=== PATIENT | male | born 1965 | race African-American/Black ===

== ENCOUNTER 2019-07-19 13:39 | Inpatient (IN) | payer BC, OTHER ==
[2019-07-19] MEDS ORDERED: SODIUM CHLORIDE 0.9% 1,000 ML IV STA (14:05)
[2019-07-19 14:14] LABS: Glucose,Whole Blood 562 mg/dL (75-99)
[2019-07-19 14:14] LABS: Glucose,Whole Blood 591 mg/dL (75-99)
--- NOTE | 2019-07-19 14:16 | ED ---
General Adult HPI - General Chief complaint: Recheck/Abnormal Lab/Rx Stated complaint: blurred vison Time Seen by Provider: 07/19/19 14:05 Source: patient, RN notes reviewed Mode of arrival: ambulatory Limitations: no limitations - History of Present Illness Initial comments: Patient is a pleasant 53-year-old male presenting to the emergency department with several symptoms that concern him about possible diabetes. Patient researched some symptoms online and now is concern regarding this. Patient states symptoms have been present for a few days. Patient does have some mild blurry vision. Patient feels like his mouth is dry and is thirsty. Patient has been urinating more than normal. Patient feels fatigued and slightly lightheaded. No history of similar symptoms previously. No known family history of diabetes. No weakness. No confusion. - Related Data Home Medications Medication Instructions Recorded Confirmed Melatonin 5 mg PO HS 12/05/17 12/05/17 Multivitamins, Thera [Multivitamin 1 tab PO DAILY 12/05/17 12/05/17 (formulary)] Allergies Allergy/AdvReac Type Severity Reaction Status Date / Time No Known Allergies Allergy Verified 07/19/19 13:52 Review of Systems ROS Statement: Those systems with pertinent positive or pertinent negative responses have been documented in the HPI. ROS Other: All systems not noted in ROS Statement are negative. Constitutional: Denies: fever Eyes: Reports: as per HPI. Denies: eye pain ENT: Denies: ear pain Respiratory: Denies: cough, dyspnea Cardiovascular: Denies: chest pain Endocrine: Reports: fatigue Gastrointestinal: Denies: abdominal pain, nausea, vomiting Genitourinary: Reports: frequency. Denies: dysuria Musculoskeletal: Denies: back pain Skin: Denies: rash Neurological: Reports: as per HPI Past Medical History Past Medical History: Hypertension History of Any Multi-Drug Resistant Organisms: Unobtainable Past Surgical History: No Surgical Hx Reported Past Psychological History: No Psychological Hx Reported Smoking Status: Never smoker Past Alcohol Use History: None Reported Past Drug Use History: None Reported General Exam Limitations: no limitations General appearance: alert, in no apparent distress Head exam: Present: normocephalic Eye exam: Present: normal appearance ENT exam: Present: normal oropharynx Neck exam: Present: normal inspection Respiratory exam: Present: normal lung sounds bilaterally Cardiovascular Exam: Present: regular rate, normal rhythm GI/Abdominal exam: Present: soft. Absent: tenderness Extremities exam: Present: normal inspection Neurological exam: Present: alert, CN II-XII intact. Absent: motor sensory deficit Expanded Motor strength exam: RUE: 5, LUE: 5, RLE: 5, LLE: 5 Eye Response: (4) open spontaneously Motor Response: (6) obeys commands Verbal Response: (5) oriented Psychiatric exam: Present: normal affect, normal mood Skin exam: Present: normal color Course Vital Signs 07/19/19 07/19/19 13:47 15:15 Temperature 98.6 F Pulse Rate 125 H 103 H Respiratory 18 18 Rate Blood Pressure 141/98 134/96 O2 Sat by Pulse 100 98 Oximetry EKG Findings - EKG Comments: EKG Findings:: Sinus tachycardia 113. WA 114. QRS 90. QT 306. QTc 419. No rmal axis. Normal QRS. No acute ST change. Medical Decision Making - Medical Decision Making Patient reevaluated and resting comfortably in bed. Patient updated on results and plan. [facility] has been paged for admission for hospital call. Fluids given. IV insulin and will be provided. - Lab Data Result diagrams: 07/19/19 14:05 07/19/19 14:05 Lab Results 07/19/19 07/19/19 07/19/19 Range/Units 14:00 14:02 14:05 WBC 15.6 H (3.8-10.6) k/uL RBC 5.73 (4.30-5.90) m/uL Hgb 17.0 (13.0-17.5) gm/dL Hct 51.4 (39.0-53.0) % MCV 89.7 (80.0-100.0) fL MCH 29.7 (25.0-35.0) pg MCHC 33.1 (31.0-37.0) g/dL RDW 12.5 (11.5-15.5) % Plt Count 232 (150-450) k/uL Neutrophils % 82 % Lymphocytes % 12 % Monocytes % 4 % Eosinophils % 1 % Basophils % 0 % Neutrophils # 12.8 H (1.3-7.7) k/uL Lymphocytes # 1.9 (1.0-4.8) k/uL Monocytes # 0.6 (0-1.0) k/uL Eosinophils # 0.1 (0-0.7) k/uL Basophils # 0.0 (0-0.2) k/uL Sodium (137-145) mmol/L Potassium (3.5-5.1) mmol/L Chloride (98-107) mmol/L Carbon Dioxide (22-30) mmol/L Anion Gap mmol/L BUN (9-20) mg/dL Creatinine (0.66-1.25) mg/dL Est GFR (CKD-EPI)AfAm (>60 ml/min/1.73 sqM) Est GFR (CKD-EPI)NonAf (>60 ml/min/1.73 sqM) Glucose (74-99) mg/dL POC Glucose (mg/dL) 562 H 591 H (75-99) mg/dL POC Glu [employer] Carolina Whitten Joanna Plasma Lactic Acid Gerry (0.7-2.0) mmol/L Calcium (8.4-10.2) mg/dL Magnesium (1.6-2.3) mg/dL Total Bilirubin (0.2-1.3) mg/dL AST (17-59) U/L ALT (4-49) U/L Alkaline Phosphatase (38-126) U/L Total Protein (6.3-8.2) g/dL Albumin (3.5-5.0) g/dL Acetone, Qual (Negative) 07/19/19 07/19/19 07/19/19 Range/Units 14:05 14:05 15:16 WBC (3.8-10.6) k/uL RBC (4.30-5.90) m/uL Hgb (13.0-17.5) gm/dL Hct (39.0-53.0) % MCV (80.0-100.0) fL MCH (25.0-35.0) pg MCHC (31.0-37.0) g/dL RDW (11.5-15.5) % Plt Count (150-450) k/uL Neutrophils % % Lymphocytes % % Monocytes % % Eosinophils % % Basophils % % Neutrophils # (1.3-7.7) k/uL Lymphocytes # (1.0-4.8) k/uL Monocytes # (0-1.0) k/uL Eosinophils # (0-0.7) k/uL Basophils # (0-0.2) k/uL Sodium 129 L (137-145) mmol/L Potassium 5.4 H (3.5-5.1) mmol/L Chloride 93 L (98-107) mmol/L Carbon Dioxide 11 L (22-30) mmol/L Anion Gap 25 mmol/L BUN 31 H (9-20) mg/dL Creatinine 1.55 H (0.66-1.25) mg/dL Est GFR (CKD-EPI)AfAm 58 (>60 ml/min/1.73 sqM) Est GFR (CKD-EPI)NonAf 50 (>60 ml/min/1.73 sqM) Glucose 611 H* (74-99) mg/dL POC Glucose (mg/dL) 504 H (75-99) mg/dL POC Glu [employer] Carolina Whitten Plasma Lactic Acid Gerry 3.6 H* (0.7-2.0) mmol/L Calcium 10.1 (8.4-10.2) mg/dL Magnesium 2.1 (1.6-2.3) mg/dL Total Bilirubin 0.9 (0.2-1.3) mg/dL AST 25 (17-59) U/L ALT 32 (4-49) U/L Alkaline Phosphatase 133 H (38-126) U/L Total Protein 8.8 H (6.3-8.2) g/dL Albumin 4.8 (3.5-5.0) g/dL Acetone, Qual Positive (Negative) - Radiology Data Radiology results: image reviewed (Chest x-ray shows no acute process) Critical Care Time Critical Care Time: Yes Total Critical Care Time: 32 Disposition Clinical Impression: Diabetic ketoacidosis Disposition: ADMITTED IP TO THIS [facility] Condition: Serious Is patient prescribed a controlled substance at d/c from ED?: No Referrals: None,Stated [Primary Care Provider] - 1-2 days Decision Time: 15:35
--- NOTE | 2019-07-19 14:47 | XR ---
EXAMINATION TYPE: XR chest 2V DATE OF EXAM: 07/19/2019 COMPARISON: NONE HISTORY: Shortness of breath TECHNIQUE: Frontal and lateral views of the chest are obtained. FINDINGS: Scattered senescent parenchymal changes noted. Hyperinflation compatible with COPD. No evidence for infiltrate. No evidence for atelectasis. Heart size is stable. Mediastinal structures are stable and grossly unremarkable. No evidence for hilar prominence. Degenerative changes dorsal spine. IMPRESSION: 1. No evidence for acute pulmonary disease.
[2019-07-19 14:49] LABS: Basophils % (A) 0 %; Eosinophils # (A) 0.1 k/uL (0-0.7); Eosinophils % (A) 1 %; HCT 51.4 % (39.0-53.0); Lymphocytes # (A) 1.9 k/uL (1.0-4.8); Lymphocytes % (A) 12 %; MCH 29.7 pg (25.0-35.0); MCHC 33.1 g/dL (31.0-37.0); MCV 89.7 fL (80.0-100.0); Mean Platelet Volume 11.5; Monocytes # (A) 0.6 k/uL (0-1.0); Monocytes % (A) 4 %; Neutrophils # (A) 12.8 k/uL (1.3-7.7); Neutrophils % (A) 82 %; Platelet Count 232 k/uL (150-450); RBC 5.73 m/uL (4.30-5.90); RDW 12.5 % (11.5-15.5); WBC 15.6 k/uL (3.8-10.6)
[2019-07-19 14:51] LABS: ALT 32 U/L (4-49); AST 25 U/L (17-59); African American GFR (CKD) 58 (>60 ml/min/1.73 sqM); Albumin 4.8 g/dL (3.5-5.0); Alkaline Phosphatase 133 U/L (38-126); Anion Gap 25 mmol/L; Blood Urea Nitrogen 31 mg/dL (9-20); Calcium 10.1 mg/dL (8.4-10.2); Carbon Dioxide 11 mmol/L (22-30); Chloride 93 mmol/L (98-107); Magnesium 2.1 mg/dL (1.6-2.3); Non-African American GFR(CKD) 50 (>60 ml/min/1.73 sqM); Potassium 5.4 mmol/L (3.5-5.1); Sodium 129 mmol/L (137-145); Total Bilirubin 0.9 mg/dL (0.2-1.3); Total Protein 8.8 g/dL (6.3-8.2)
[2019-07-19 15:17] LABS: Glucose 611 mg/dL (74-99)
[2019-07-19 15:17] LABS: Glucose,Whole Blood 504 mg/dL (75-99)
[2019-07-19 15:35] LABS: Appearance,Urine Clear (Clear); Bilirubin,Urine Negative (Negative); Blood,Urine Small (Negative); Color,Urine Colorless; Glucose,Urine (UA) 4+ (Negative); Hyaline Casts,Urine 1 /lpf (0-2); Leukocyte Esterase,Urine Negative (Negative); Mucus,Urine Rare /hpf; Nitrite,Urine Negative (Negative); Protein,Urine Negative (Negative); RBC,Urine 1 /hpf (0-5); Urobilinogen,Urine <2.0 mg/dL (<2.0)
[2019-07-19] MEDS ORDERED: SODIUM CHLORIDE 0.9% 1,000 ML IV ONE (15:35)
[2019-07-19] MEDS ORDERED: INSULIN REGULAR BOLUS (FROM DRIP BAG) IV ONE (15:35)
[2019-07-19] MEDS ORDERED: SODIUM CHLORIDE 0.9% 1,000 ML IV SCH (15:45)
[2019-07-19 15:46] LABS: Ketones,Urine 2+ (Negative)
[2019-07-19] MEDS: INSULIN REGULAR 100 UNIT in SODIUM CHLORIDE 0.9% 100 ML IV SCH (16:36)
[2019-07-19 17:01] LABS: Glucose,Whole Blood 372 mg/dL (75-99)
[2019-07-19 17:28] LABS: Glucose,Whole Blood 362 mg/dL (75-99)
--- NOTE | 2019-07-19 18:28 | P.HPIM ---
History of Present Illness H&P Date: 07/19/19 Chief Complaint: polyuria Patient is a 53-year-old -[place] male past medical history of high blood pressure no longer on medications who presented to the emergency dep artment secondary to polyuria, polydipsia, dry mouth, and blurred vision. In the ER he underwent an extensive evaluation was ultimately found to have DKA. On initial lab work he had a potassium of 5.4, sodium 129, chloride 93, carbon dioxide 11, anion gap 25, BUN 31, creatinine 1.55, glucose 611, acetone positive, and lactic acid of 3.6. He was started on IV fluids and insulin and admitted for further monitoring. Patient seen and examined at bedside. He states he initially started to feel i ll approximately 3 weeks ago. He has noticed about a 10 pound weight loss. He has had frequent urination, frequent thirst, dry mouth, blurry vision. He denies any nausea, vomiting, diarrhea, constipation, chest pain, shortness breath, or cough. He has felt overall very fatigued. He has no family history of diabetes. He currently does not follow with the primary care physician. Review of Systems Pertinent positives and negatives as discussed in HPI, a complete review of systems was performed and all other systems are negative. 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 No significant issues noted on an osteopathic structural exam other than those noted in the History and Physical/Consult. Vitals: Vital Signs Temp Pulse Resp BP Pulse Ox 07/19/19 17:31 115 H 17 127/79 98 07/19/19 17:08 113 H 18 119/78 98 07/19/19 15:15 103 H 18 134/96 98 07/19/19 13:47 98.6 F 125 H 18 141/98 100 Intake and Output 07/19/19 07/19/19 07/19/19 06:59 14:59 22:59 Other: Weight 99.79 kg General: Ill-appearing, no distress, appears at stated age, normal weight Derm: no unusual rashes/lesions no unusual ecchymoses, warm, dry Head: atraumatic, normocephalic, symmetric Eyes: EOMI, no lid lag, anicteric sclera, pupils equal round reactive to light ENT: Nose and ears atraumatic, no thrush, no pharyngeal erythema Neck: No thyromegaly, no cervical lymphadenopathy, trachea midline, supple Mouth: no lip lesion, mucus membranes dry Cardiovascular: S1S2 reg, no murmur, positive posterior tibial pulse bilateral, no edema, capillary refill less than 2 seconds Lungs: CTA bilateral, no rhonchi, no rales , no accessory muscle use Abdominal: soft, nontender to palpation, no guarding, no appreciable organomegaly, normal bowel sounds Ext: no gross muscle atrophy, muscle strength 5 out of 5 in all 4 extremities grossly, no contractures, Neuro: CN II-XI grossly intact, light touch intact all 4 extremities, finger to nose within normal limits, Psych: Alert, oriented, appropriate affect Results CBC & Chem 7: 07/19/19 14:05 07/19/19 14:05 Labs: Abnormal Lab Results - Last 24 Hours (Table) 07/19/19 07/19/19 07/19/19 Range/Units 14:00 14:02 14:05 WBC 15.6 H (3.8-10.6) k/uL Neutrophils # 12.8 H (1.3-7.7) k/uL Sodium (137-145) mmol/L Potassium (3.5-5.1) mmol/L Chloride (98-107) mmol/L Carbon Dioxide (22-30) mmol/L BUN (9-20) mg/dL Creatinine (0.66-1.25) mg/dL Glucose (74-99) mg/dL POC Glucose (mg/dL) 562 H 591 H (75-99) mg/dL Plasma Lactic Acid Gerry (0.7-2.0) mmol/L Alkaline Phosphatase (38-126) U/L Total Protein (6.3-8.2) g/dL Urine Glucose (UA) (Negative) Urine Ketones (Negative) Urine Blood (Negative) Urine Mucus (None) /hpf 07/19/19 07/19/19 07/19/19 Range/Units 14:05 14:05 15:10 WBC (3.8-10.6) k/uL Neutrophils # (1.3-7.7) k/uL Sodium 129 L (137-145) mmol/L Potassium 5.4 H (3.5-5.1) mmol/L Chloride 93 L (98-107) mmol/L Carbon Dioxide 11 L (22-30) mmol/L BUN 31 H (9-20) mg/dL Creatinine 1.55 H (0.66-1.25) mg/dL Glucose 611 H* (74-99) mg/dL POC Glucose (mg/dL) (75-99) mg/dL Plasma Lactic Acid Gerry 3.6 H* (0.7-2.0) mmol/L Alkaline Phosphatase 133 H (38-126) U/L Total Protein 8.8 H (6.3-8.2) g/dL Urine Glucose (UA) 4+ H (Negative) Urine Ketones 2+ H (Negative) Urine Blood Small H (Negative) Urine Mucus Rare H (None) /hpf 07/19/19 07/19/19 07/19/19 Range/Units 15:16 16:59 17:27 WBC (3.8-10.6) k/uL Neutrophils # (1.3-7.7) k/uL Sodium (137-145) mmol/L Potassium (3.5-5.1) mmol/L Chloride (98-107) mmol/L Carbon Dioxide (22-30) mmol/L BUN (9-20) mg/dL Creatinine (0.66-1.25) mg/dL Glucose (74-99) mg/dL POC Glucose (mg/dL) 504 H 372 H 362 H (75-99) mg/dL Plasma Lactic Acid Gerry (0.7-2.0) mmol/L Alkaline Phosphatase (38-126) U/L Total Protein (6.3-8.2) g/dL Urine Glucose (UA) (Negative) Urine Ketones (Negative) Urine Blood (Negative) Urine Mucus (None) /hpf Chest x-ray: report reviewed Thrombosis Risk Factor Assmnt - DVT/VTE Prophylaxis DVT/VTE Prophylaxis: Low risk, early ambulation encouraged Assessment and Plan Assessment: Newly discovered diabetes mellitus type 2 with diabetic ketoacidosis -DKA protocol with IV fluids, insulin, every hour Accu-Cheks, and serial lab work -Check hemoglobin A1c -Social stressors that patient has no insurance and likely will need 70/30 from [employer]. Pseudohyponatremia was corrected sodium level CXLI -Continue with normal saline -Follow sodium levels Hyperkalemia -Secondary acidosis -IV fluids -Follow electrolytes closely CAMI vs CKD -IV fluids -Avoid nephrotoxic agents -Repeat basic but about profile in a.m. History of high blood pressure -No longer medications -Follow blood pressures closely Leukocytosis -Suspect stress-induced -Chest x-ray negative, urinalysis negative -Repeat CBC in a.m. Lactic acidosis -Suspect secondary to above -Repeat lactic acid pending -IV fluids Obesity with BMI 30.7 -Structured outpatient weight loss Social stressor - no insurance. The patient is admitted with an anticipated greater than 2 midnight stay for evaluation of DKA Surrogate decision-maker: Daughter CODE STATUS:Full DVT prophylaxis: SCDs Discussed with: Patient, ED physician Anticipated discharge date: 2-[address]: home A total of 65 minutes was spent on the care of this complex patient more than 50% of the time was spent in counseling and care coordination.
[2019-07-19] MEDS ORDERED: INSULIN REGULAR 100 UNIT in SODIUM CHLORIDE 0.9% 100 ML IV SCH (18:30)
[2019-07-19] MEDS ORDERED: ACETAMINOPHEN TAB 325 MG TAB PO PRN (18:32)
[2019-07-19] MEDS ORDERED: MELATONIN 5 MG TABLET PO PRN (18:32)
[2019-07-19] MEDS ORDERED: ONDANSETRON 4 MG/2 ML VIAL IVP PRN (18:32)
[2019-07-19] MEDS ORDERED: CALCIUM CARBONATE 500 MG CHEWABLE PO PRN (18:32)
[2019-07-19 18:42] LABS: Glucose,Whole Blood 233 mg/dL (75-99)
[2019-07-19] MEDS: D5-0.45% NACL WITH KCL 20MEQ/L 1,000 ML IV SCH (19:09)
[2019-07-19 19:16] LABS: Glucose,Whole Blood 249 mg/dL (75-99)
[2019-07-19 19:25] LABS: Calcium 9.3 mg/dL (8.4-10.2); Magnesium 2.3 mg/dL (1.6-2.3); Phosphorus 3.8 mg/dL (2.5-4.5); Potassium 4.3 mmol/L (3.5-5.1)
[2019-07-19 20:17] LABS: Glucose,Whole Blood 181 mg/dL (75-99)
[2019-07-19 21:19] LABS: Glucose,Whole Blood 244 mg/dL (75-99)
[2019-07-19 22:22] LABS: Glucose,Whole Blood 234 mg/dL (75-99)
[2019-07-19 23:20] LABS: Glucose,Whole Blood 196 mg/dL (75-99)
[2019-07-20 00:03] LABS: African American GFR (CKD) >90 (>60 ml/min/1.73 sqM); Anion Gap 25 mmol/L; Carbon Dioxide 15 mmol/L (22-30); Chloride 107 mmol/L (98-107); Non-African American GFR(CKD) 78 (>60 ml/min/1.73 sqM); Phosphorus 3.9 mg/dL (2.5-4.5); Sodium 147 mmol/L (137-145)
[2019-07-20 00:05] LABS: Blood Urea Nitrogen 29 mg/dL (9-20); Potassium 5.7 mmol/L (3.5-5.1)
[2019-07-20 00:20] LABS: Glucose,Whole Blood 274 mg/dL (75-99)
[2019-07-20] MEDS: INSULIN REGULAR 100 UNIT in SODIUM CHLORIDE 0.9% 100 ML IV SCH ×2 (00:37→13:12)
[2019-07-20 01:32] LABS: Glucose,Whole Blood 202 mg/dL (75-99)
[2019-07-20] MEDS: D5-0.45% NACL WITH KCL 20MEQ/L 1,000 ML IV SCH ×2 (02:11→09:59)
[2019-07-20 02:30] LABS: Glucose,Whole Blood 163 mg/dL (75-99)
[2019-07-20 03:19] LABS: Glucose,Whole Blood 157 mg/dL (75-99)
[2019-07-20 04:18] LABS: Glucose,Whole Blood 179 mg/dL (75-99)
[2019-07-20 05:20] LABS: Glucose,Whole Blood 131 mg/dL (75-99)
[2019-07-20 06:26] LABS: Glucose,Whole Blood 127 mg/dL (75-99)
[2019-07-20 07:11] LABS: Glucose,Whole Blood 118 mg/dL (75-99)
[2019-07-20 07:43] LABS: HGB 15.5 gm/dL (13.0-17.5); MCH 29.5 pg (25.0-35.0); MCV 89.5 fL (80.0-100.0); Mean Platelet Volume 10.1; Platelet Count 180 k/uL (150-450); RBC 5.25 m/uL (4.30-5.90); RDW 12.5 % (11.5-15.5)
[2019-07-20 07:48] LABS: African American GFR (CKD) >90 (>60 ml/min/1.73 sqM); Anion Gap 11 mmol/L; Blood Urea Nitrogen 22 mg/dL (9-20); Calcium 8.7 mg/dL (8.4-10.2); Carbon Dioxide 19 mmol/L (22-30); Chloride 106 mmol/L (98-107); Glucose 106 mg/dL (74-99); Magnesium 2.3 mg/dL (1.6-2.3); Non-African American GFR(CKD) 84 (>60 ml/min/1.73 sqM); Phosphorus 3.4 mg/dL (2.5-4.5); Potassium 4.1 mmol/L (3.5-5.1); Sodium 136 mmol/L (137-145)
[2019-07-20 07:58] LABS: Glucose,Whole Blood 137 mg/dL (75-99)
[2019-07-20 09:36] LABS: Glucose,Whole Blood 241 mg/dL (75-99)
[2019-07-20] MEDS: SODIUM CHLORIDE 0.9% 1,000 ML IV SCH ×3 (09:59→14:25)
[2019-07-20 10:50] LABS: Glucose,Whole Blood 269 mg/dL (75-99)
[2019-07-20 10:55] VITALS: BMI 30.4
[2019-07-20 11:16] LABS: African American GFR (CKD) >90 (>60 ml/min/1.73 sqM); Anion Gap 14 mmol/L; Blood Urea Nitrogen 20 mg/dL (9-20); Calcium 8.5 mg/dL (8.4-10.2); Carbon Dioxide 14 mmol/L (22-30); Chloride 104 mmol/L (98-107); Glucose 297 mg/dL (74-99); Non-African American GFR(CKD) >90 (>60 ml/min/1.73 sqM); Sodium 132 mmol/L (137-145)
[2019-07-20 12:22] LABS: African American GFR (CKD) >90 (>60 ml/min/1.73 sqM); Anion Gap 12 mmol/L; Blood Urea Nitrogen 19 mg/dL (9-20); Calcium 8.7 mg/dL (8.4-10.2); Carbon Dioxide 17 mmol/L (22-30); Chloride 103 mmol/L (98-107); Glucose 277 mg/dL (74-99); Non-African American GFR(CKD) >90 (>60 ml/min/1.73 sqM); Potassium 4.5 mmol/L (3.5-5.1); Sodium 132 mmol/L (137-145)
[2019-07-20 13:13] LABS: Glucose,Whole Blood 245 mg/dL (75-99)
[2019-07-20 13:59] LABS: Hemoglobin A1C 13.9 % (4.0-6.0)
[2019-07-20] MEDS ORDERED: INSULIN DETEMIR (LEVEMIR) 100 UNIT/ML SYR SQ ONE (14:00)
[2019-07-20 16:31] LABS: Glucose,Whole Blood 302 mg/dL (75-99)
[2019-07-20 16:35] LABS: African American GFR (CKD) >90 (>60 ml/min/1.73 sqM); Anion Gap 10 mmol/L; Blood Urea Nitrogen 18 mg/dL (9-20); Calcium 8.5 mg/dL (8.4-10.2); Carbon Dioxide 19 mmol/L (22-30); Chloride 103 mmol/L (98-107); Glucose 294 mg/dL (74-99); Non-African American GFR(CKD) 84 (>60 ml/min/1.73 sqM); Potassium 4.3 mmol/L (3.5-5.1); Sodium 132 mmol/L (137-145)
[2019-07-20] MEDS: INSULIN ASPART (NovoLOG) 100 UNIT/ML VIAL SQ SCH ×2 (16:53→21:35)
--- NOTE | 2019-07-20 19:36 | P.PN ---
Subjective Progress Note Date: 07/20/19 (delayed charting seen at 1045) Principal diagnosis: polydyspnea Patient is a 53-year-old -Surinamese male past medical history of high blood pressure no longer on medications who presented to the emergency department secondary to polyuria, polydipsia, dry mouth, and blurred vision. In the ER he underwent an extensive evaluation was ultimately found to have DKA. On initial lab work he had a potassium of 5.4, sodium 129, chloride 93, carbon dioxide 11, anion gap 25, BUN 31, creatinine 1.55, glucose 611, acetone positive, and lactic acid of 3.6. He was started on IV fluids and insulin gtt and admitted for further monitoring. Overnight on 07/18 they were able to go down on his insulin drip and her sugars became better controlled. Patient seen and examined at bedside. He is feeling much better than yesterday. He denies any nausea, vomiting, shortness of breath. He states that his polyuria and polydipsia are much improved. He is back to baseline. He feels "amazing". He wants to go home. Objective - Vital Signs Vital signs: Vital Signs Temp 98.4 F 07/20/19 19:24 Pulse 74 07/20/19 19:24 Resp 18 07/20/19 19:24 BP 128/74 07/20/19 19:24 Pulse Ox 100 07/20/19 19:24 Intake & Output 07/20/19 07/20/19 07/21/19 06:59 18:59 06:59 Intake Total 0144.602 1176.313 Output Total 700 600 Balance 765.615 5154.313 -600 Weight 99.2 kg 99.2 kg Intake: IV 1350 1200 D5-0.45% NaCl with KCl 1350 1200 20Meq/l 1,000 ml @ 150 mls/hr IV .Q6H40M [facility] Rx# :[id number] Intake, IV Titration 139.372 10.313 Amount Insulin Regular 100 unit 139.372 10.313 In Sodium Chloride 0.9% 100 ml @ 0.1 UNITS/KG/HR 10.079 mls/hr IV .Q10H2M [facility] Rx#:[id number] Oral 360 Output: Urine 700 600 Other: Voiding Method Toilet Toilet Toilet # Voids 1 - Exam General: non toxic, no distress, appears at stated age Derm: warm, dry Head: atraumatic, normocephalic, symmetric Eyes: EOMI, no lid lag, anicteric sclera Mouth: no lip lesion, mucus membranes moist Cardiovascular: S1S2 reg, no murmur, positive posterior tibial pulse bilateral, Lungs: CTA bilateral, no rhonchi, no rales , no accessory muscle use Abdominal: soft, nontender to palpation, no guarding, no appreciable organomegaly Ext: no gross muscle atrophy, no edema, no contractures Neuro: CN II-XI grossly intact, no focal neuro deficits Psych: Alert, oriented, appropriate affect - Labs CBC & Chem 7: 07/20/19 06:36 07/20/19 16:06 Labs: Abnormal Lab Results - Last 24 Hours (Table) 07/19/19 07/19/19 07/19/19 Range/Units 20:16 21:17 22:21 WBC (3.8-10.6) k/uL Sodium (137-145) mmol/L Potassium (3.5-5.1) mmol/L Carbon Dioxide (22-30) mmol/L BUN (9-20) mg/dL Glucose (74-99) mg/dL POC Glucose (mg/dL) 181 H 244 H 234 H (75-99) mg/dL Hemoglobin A1c (4.0-6.0) % 07/19/19 07/19/19 07/20/19 Range/Units 22:50 23:19 00:18 WBC (3.8-10.6) k/uL Sodium 147 H (137-145) mmol/L Potassium 5.7 H (3.5-5.1) mmol/L Carbon Dioxide 15 L (22-30) mmol/L BUN 29 H (9-20) mg/dL Glucose (74-99) mg/dL POC Glucose (mg/dL) 196 H 274 H (75-99) mg/dL Hemoglobin A1c (4.0-6.0) % 07/20/19 07/20/19 07/20/19 Range/Units 01:31 02:29 03:17 WBC (3.8-10.6) k/uL Sodium (137-145) mmol/L Potassium (3.5-5.1) mmol/L Carbon Dioxide (22-30) mmol/L BUN (9-20) mg/dL Glucose (74-99) mg/dL POC Glucose (mg/dL) 202 H 163 H 157 H (75-99) mg/dL Hemoglobin A1c (4.0-6.0) % 07/20/19 07/20/19 07/20/19 Range/Units 04:16 05:18 06:24 WBC (3.8-10.6) k/uL Sodium (137-145) mmol/L Potassium (3.5-5.1) mmol/L Carbon Dioxide (22-30) mmol/L BUN (9-20) mg/dL Glucose (74-99) mg/dL POC Glucose (mg/dL) 179 H 131 H 127 H (75-99) mg/dL Hemoglobin A1c (4.0-6.0) % 07/20/19 07/20/19 07/20/19 Range/Units 06:36 06:36 06:36 WBC 11.0 H (3.8-10.6) k/uL Sodium 136 L (137-145) mmol/L Potassium (3.5-5.1) mmol/L Carbon Dioxide 19 L (22-30) mmol/L BUN 22 H (9-20) mg/dL Glucose 106 H (74-99) mg/dL POC Glucose (mg/dL) (75-99) mg/dL Hemoglobin A1c 13.9 H (4.0-6.0) % 07/20/19 07/20/19 07/20/19 Range/Units 07:04 07:57 09:34 WBC (3.8-10.6) k/uL Sodium (137-145) mmol/L Potassium (3.5-5.1) mmol/L Carbon Dioxide (22-30) mmol/L BUN (9-20) mg/dL Glucose (74-99) mg/dL POC Glucose (mg/dL) 118 H 137 H 241 H (75-99) mg/dL Hemoglobin A1c (4.0-6.0) % 07/20/19 07/20/19 07/20/19 Range/Units 10:48 10:50 12:00 WBC (3.8-10.6) k/uL Sodium 132 L 132 L (137-145) mmol/L Potassium 6.0 H (3.5-5.1) mmol/L Carbon Dioxide 14 L 17 L (22-30) mmol/L BUN (9-20) mg/dL Glucose 297 H 277 H (74-99) mg/dL POC Glucose (mg/dL) 269 H (75-99) mg/dL Hemoglobin A1c (4.0-6.0) % 07/20/19 07/20/19 07/20/19 Range/Units 13:11 16:06 16:30 WBC (3.8-10.6) k/uL Sodium 132 L (137-145) mmol/L Potassium (3.5-5.1) mmol/L Carbon Dioxide 19 L (22-30) mmol/L BUN (9-20) mg/dL Glucose 294 H (74-99) mg/dL POC Glucose (mg/dL) 245 H 302 H (75-99) mg/dL Hemoglobin A1c (4.0-6.0) % Assessment and Plan Assessment: Newly discovered diabetes mellitus type 2 with diabetic ketoacidosis -Transitioned off gtt, SSI and Levemir, follow BS -Hemoglobin A1c 13.9 -Social stressors that patient has no insurance and likely will need 70/30 from [employer]. Hyponatremia - transition to normal saline - follow sodium levels Leukocytosis, improved -Suspect stress-induced -Chest x-ray negative, urinalysis negative -Repeat CBC in a.m. Obesity with BMI 30.7 -Structured outpatient weight loss History of high blood pressure -No longer medications -Follow blood pressures closely Social stressor - no insurance. Hyperkalemia, resolved ACMI, resolved Pseudohyponatremia, resolved Lactic acidosis, resolved DVT prophylaxis: SCDs Discussed with: Patient, ED physician Anticipated discharge date: 1-[address]: home A total of 40 minutes was spent on the care of this complex patient more than 50% of the time was spent in counseling and care coordination.
[2019-07-20 20:38] LABS: Glucose,Whole Blood 301 mg/dL (75-99)
[2019-07-20] MEDS: INSULIN DETEMIR (LEVEMIR) 100 UNIT/ML SYR SQ SCH (21:35)
[2019-07-21 02:02] LABS: Glucose,Whole Blood 312 mg/dL (75-99)
[2019-07-21 06:26] LABS: Glucose,Whole Blood 258 mg/dL (75-99)
[2019-07-21 07:04] LABS: HCT 48.3 % (39.0-53.0); HGB 15.9 gm/dL (13.0-17.5); MCH 28.6 pg (25.0-35.0); MCHC 32.8 g/dL (31.0-37.0); MCV 87.2 fL (80.0-100.0); Mean Platelet Volume 10.9; Platelet Count 145 k/uL (150-450); RBC 5.54 m/uL (4.30-5.90); RDW 12.4 % (11.5-15.5); WBC 5.8 k/uL (3.8-10.6)
[2019-07-21 07:12] LABS: African American GFR (CKD) >90 (>60 ml/min/1.73 sqM); Anion Gap 11 mmol/L; Blood Urea Nitrogen 16 mg/dL (9-20); Calcium 8.8 mg/dL (8.4-10.2); Carbon Dioxide 15 mmol/L (22-30); Chloride 109 mmol/L (98-107); Glucose 277 mg/dL (74-99); Non-African American GFR(CKD) >90 (>60 ml/min/1.73 sqM); Sodium 135 mmol/L (137-145)
[2019-07-21 07:14] LABS: Potassium 4.7 mmol/L (3.5-5.1)
[2019-07-21] MEDS: INSULIN ASPART (NovoLOG) 100 UNIT/ML VIAL SQ SCH ×3 (07:20→17:09)
[2019-07-21] MEDS: SODIUM CHLORIDE 0.9% 1,000 ML IV SCH (08:04)
[2019-07-21 11:40] LABS: Glucose,Whole Blood 326 mg/dL (75-99)
[2019-07-21 16:38] LABS: Glucose,Whole Blood 337 mg/dL (75-99)
[2019-07-21 18:39] LABS: Glucose,Whole Blood 390 mg/dL (75-99)
--- NOTE | 2019-07-21 20:45 | P.PN ---
Subjective Progress Note Date: 07/21/19 (delayed charting seen at 0945) Principal diagnosis: polydyspnea Patient is a 53-year-old -[place]ian male past medical history of high blood pressure no longer on medications who presented to the emergency department secondary to polyuria, polydipsia, dry mouth, and blurred vision. In the ER he underwent an extensive evaluation was ultimately found to have DKA. On initial lab work he had a potassium of 5.4, sodium 129, chloride 93, carbon dioxide 11, anion gap 25, BUN 31, creatinine 1.55, glucose 611, acetone positive, and lactic acid of 3.6. He was started on IV fluids and insulin gtt and admitted for further monitoring. Overnight on 07/18 they were able to go down on his insulin drip and his sugars became better controlled. He is able to transition off the drip by the afternoon of 07/19 and was well controlled on subcutaneous insulin. He continued to do education on insulin for discharge. Hemoglobin A1c came back at 13.9. Patient seen and examined at bedside. Feeling well, no chest pain, shortness breath, no nausea, tolerating diet well. No constipation. Objective - Vital Signs Vital signs: Vital Signs Temp 98.3 F 07/21/19 15:38 Pulse 87 07/21/19 15:38 Resp 18 07/21/19 15:38 BP 147/82 07/21/19 15:38 Pulse Ox 99 07/21/19 15:38 Intake & Output 07/21/19 07/21/19 07/22/19 06:59 18:59 06:59 Intake Total 1989 Output Total 1200 Balance -1199 1989 Weight 102.1 kg Intake: Intake, IV Titration 10 Amount Sodium Chloride 0.9% 1, 10 000 ml @ 125 mls/hr IV . Q8H [facility] Rx#:[id number] Oral 1979 Output: Urine 1200 Other: Voiding Method Toilet Toilet - Exam General: non toxic, no distress, appears at stated age Derm: warm, dry Head: atraumatic, normocephalic, symmetric Eyes: EOMI, no lid lag, anicteric sclera Mouth: no lip lesion, mucus membranes moist Cardiovascular: S1S2 reg, no murmur, positive posterior tibial pulse bilateral, Lungs: CTA bilateral, no rhonchi, no rales , no accessory muscle use Abdominal: soft, nontender to palpation, no guarding, no appreciable organomegaly Ext: no gross muscle atrophy, no edema, no contractures Neuro: CN II-XI grossly intact, no focal neuro deficits Psych: Alert, oriented, appropriate affect - Labs CBC & Chem 7: 07/21/19 06:36 07/21/19 06:36 Labs: Abnormal Lab Results - Last 24 Hours (Table) 07/21/19 07/21/19 07/21/19 Range/Units 02:01 06:25 06:36 Plt Count 145 L (150-450) k/uL Sodium (137-145) mmol/L Chloride (98-107) mmol/L Carbon Dioxide (22-30) mmol/L Glucose (74-99) mg/dL POC Glucose (mg/dL) 312 H 258 H (75-99) mg/dL 07/21/19 07/21/19 07/21/19 Range/Units 06:36 11:37 16:28 Plt Count (150-450) k/uL Sodium 135 L (137-145) mmol/L Chloride 109 H (98-107) mmol/L Carbon Dioxide 15 L (22-30) mmol/L Glucose 277 H (74-99) mg/dL POC Glucose (mg/dL) 326 H 337 H (75-99) mg/dL 07/21/19 Range/Units 18:31 Plt Count (150-450) k/uL Sodium (137-145) mmol/L Chloride (98-107) mmol/L Carbon Dioxide (22-30) mmol/L Glucose (74-99) mg/dL POC Glucose (mg/dL) 390 H (75-99) mg/dL Assessment and Plan Assessment: Newly discovered diabetes mellitus type 2 with diabetic ketoacidosis -Stop sliding scale insulin and Levemir, trial of NovoLog 70/30 this evening as this is what I suspect he will go home on -Hemoglobin A1c 13.9 -Of note patient thinks his [employer] may still be active though he has been laid off from work. We'll attempt to send through prescriptions with [employer] in a.m. if blood sugar remains well controlled. Hyponatremia improving -Off IV fluids - follow sodium levels Obesity with BMI 30.7 -Structured outpatient weight loss History of high blood pressure -No longer medications -Follow blood pressures closely Social stressor - no insurance. Hyperkalemia, resolved CAMI, resolved Pseudohyponatremia, resolved Lactic acidosis, resolved Leukocytosis, resolved DVT prophylaxis: SCDs Discussed with: Patient, nursing Anticipated discharge date: in AM Anticipated discharge place: home A total of 40 minutes was spent on the care of this complex patient more than 50% of the time was spent in counseling and care coordination.
[2019-07-21 20:47] LABS: Glucose,Whole Blood 287 mg/dL (75-99)
[2019-07-21] MEDS: INSULIN DETEMIR (LEVEMIR) 100 UNIT/ML SYR SQ SCH (21:22)
[2019-07-22 02:02] LABS: Glucose,Whole Blood 337 mg/dL (75-99)
[2019-07-22 06:40] LABS: African American GFR (CKD) >90 (>60 ml/min/1.73 sqM); Anion Gap 12 mmol/L; Calcium 8.9 mg/dL (8.4-10.2); Carbon Dioxide 16 mmol/L (22-30); Chloride 107 mmol/L (98-107); Glucose 266 mg/dL (74-99); Non-African American GFR(CKD) >90 (>60 ml/min/1.73 sqM); Sodium 135 mmol/L (137-145)
[2019-07-22 06:41] LABS: Blood Urea Nitrogen 15 mg/dL (9-20); Potassium 4.7 mmol/L (3.5-5.1)
[2019-07-22 06:47] LABS: Glucose,Whole Blood 253 mg/dL (75-99)
[2019-07-22] MEDS: INSULIN ASPART (NovoLOG) 100 UNIT/ML VIAL SQ SCH (07:17)
[2019-07-22 10:57] LABS: Glucose,Whole Blood 296 mg/dL (75-99)
[2019-07-22 11:38] VITALS: BP 128/71; PULSE 101; RESP 20; TEMP 98
[2019-07-22] MEDS ORDERED: INSULIN ASPART (NovoLOG) 100 UNIT/ML VIAL SQ SCH (12:30)
--- NOTE | 2019-07-22 19:56 | P.DS ---
Providers Date of admission: 07/19/19 15:36 Expected date of discharge: 07/22/19 Attending physician: Keith Harrell MD Primary care physician: Stated None Hospital Course: Discharge Diagnosis: Newly discovered diabetes mellitus type 2 with diabetic ketoacidosis Hyponatremia improving Obesity with BMI 30.7 History of high blood pressure Hyperkalemia, resolved CAMI, resolved Pseudohyponatremia, resolved Lactic acidosis, resolved Leukocytosis, resolved Hospital Course: Patient is a 53-year-old -[place] male past medical history of high blood pressure no longer on medications who presented to the emergency department secondary to polyuria, polydipsia, dry mouth, and blurred vision. In the ER he underwent an extensive evaluation was ultimately found to have DKA. On initial lab work he had a potassium of 5.4, sodium 129, chloride 93, carbon dioxide 11, anion gap 25, BUN 31, creatinine 1.55, glucose 611, acetone positive, and lactic acid of 3.6. He was started on IV fluids and insulin gtt and admitted for further monitoring. Overnight on 07/18 they were able to go down on his insulin drip and his sugars became better controlled. He is able to transition off the drip by the afternoon of 07/19 and was well controlled on subcutaneous insulin. He continued to do education on insulin for discharge. Hemoglobin A1c came back at 13.9. He was started on Lantus and did well. His blood sugars were better controlled and his anion gap was resolved. He was feeling back to baseline and was determined stable for discharge home. He'll take Lantus once nightly and metformin. He was instructed on importance of proper follow-up Diabetic education: Patient given a prescription for Lantus to start at 12 units, he will increase his dose by 2 units every other day if his blood sugars remain greater than 200, we discussed an initial trial of metformin and that he will likely have some bloating and possible loose stool but that this should get better in approximately 2 weeks, we discussed the importance of following with her primary care physician and that if his blood sugars are not well-controlled he may need additional insulin therapy. We discussed proper use of insulin Flex pen including changing needle tip with every use, alcohol swabs prior to use. He was also given a prescription for a glucometer with testing supplies. We went over the signs and symptoms of hypoglycemia and management. He was also provided a booklet on diabetic education. He was provided a calendar as to when to increase his insulin. He was also given resources for online education including the [facility] videos on insulin use. Patient seen and examined at bedside. Feeling well today. No complaints currently. No chest pain, shortness breath, nausea, or vomiting. We used the practice insulin candidate to teach injections and how to use the pen. I answered all questions. Vital signs reviewed and stable. General: non toxic, no distress, appears at stated age Derm: warm, dry Head: atraumatic, normocephalic, symmetric Eyes: EOMI, no lid lag, anicteric sclera Mouth: no lip lesion, mucus membranes moist Cardiovascular: S1S2 reg, no murmur, positive posterior tibial pulse bilateral, Lungs: CTA bilateral, no rhonchi, no rales , no accessory muscle use Abdominal: soft, nontender to palpation, no guarding, no appreciable organomegaly Ext: no gross muscle atrophy, no edema, no contractures Neuro: CN II-XI grossly intact, no focal neuro deficits Psych: Alert, oriented, appropriate affect A total of 35 minutes of time were spent preparing this complex discharge summary . Patient Condition at Discharge: Good Plan - Discharge Summary Discharge Rx Participant: No New Discharge Prescriptions: New Insulin Glargine,Hum.rec.anlog [Lantus Solostar] 10 unit SQ HS #5 pen metFORMIN HCL [Glucophage] 500 mg PO BID #60 tab Discharge Medication List Insulin Glargine,Hum.rec.anlog [Lantus Solostar] 10 unit SQ HS #5 pen 07/22/19 [Rx] metFORMIN HCL [Glucophage] 500 mg PO BID #60 tab 07/22/19 [Rx] Follow up Appointment(s)/Referral(s): Miguel Reza Jr, DO [Doctor of Osteopathic Medicine] - 07/25/19 1:00 pm None,Stated [Primary Care Provider] - 1-2 days Abdi Rowe [STAFF PHYSICIAN] - 1 Week Activity/Diet/Wound Care/Special Instructions: Activity: as tolerated Diet: carb consistent Special Instructions: Check blood sugar every morning prior to eating Increasing insulin: If AM blood sugar is greater than 200 for 2 days in a row, increase Lantus by 2 units. See attached calender Discharge Disposition: HOME SELF-CARE
== END 2019-07-22 13:59 | disposition home or self-care (01) | DRG 638 ==
LOC: EC 13:39 → 3SCARD 15:36 → 5NMEDONC 07-22 08:06
PROVIDERS: ADMIT Family Medicine; ATTEND Family Medicine
DX: E11.10 Type 2 diabetes mellitus with ketoacidosis without coma (principal); N17.9 Acute kidney failure, unspecified; E66.9 Obesity, unspecified; Z68.30 Body mass index [BMI] 30.0-30.9, adult; I10 Essential (primary) hypertension; E87.5 Hyperkalemia
CPT/HCPCS: 36415; 71046; 80048; 80051; 80053; 81001; 82009; 82565; 83036; 83605; 83735; 84100; 84520; 85025; 85027; 87635; 93005; 96360; 96361; 99285

== ENCOUNTER 2019-09-18 13:59 | Emergency (ER) | payer BC ==
[2019-09-18] MEDS ORDERED: SODIUM CHLORIDE 0.9% 1,000 ML IV STA (14:53)
--- NOTE | 2019-09-18 15:07 | ED ---
Recheck HPI - General Source: patient Mode of arrival: ambulatory Limitations: no limitations <Ihsan Spencer - Last Filed: 09/18/19 17:41> <Ally Dubois - Last Filed: 09/22/19 02:16> - General Chief Complaint: Recheck/Abnormal Lab/Rx Stated Complaint: high blood sugar Time Seen by Provider: 09/18/19 14:52 - History of Present Illness Initial Comments: Patient is a 54-year-old male with history of type 2 diabetes and DKA presenting to emergency Department with chief complaint of high blood sugar. Patient reports he checked his blood sugar earlier today and it was 405. Patient reports he was concerned for DKA so he came to the emergency department. Patient reports about 4 months ago he was diagnosed with a 2 diabetes for the first time and was discharged with medication but he ran out. States he has an appointment scheduled with a primary care physician. States she did not have a primary care physician prior to this. Denies any nausea vomiting diarrhea abdominal pain headaches. Denies any night sweats or chills. Denies any infections. Does report polyuria but denies dysuria, increased urgency or frequency. (Ihsan Spencer) - Related Data Home Medications Medication Instructions Recorded Confirmed Insulin Glargine,Hum.rec.anlog 12 unit SQ HS 09/18/19 09/18/19 [Lantus Solostar] Previous Rx's Medication Instructions Recorded metFORMIN HCL [Glucophage] 500 mg PO BID #60 tab 07/22/19 Insulin Glargine,Hum.rec.anlog 12 unit SQ HS #3 pen 09/18/19 [Lantus Solostar] metFORMIN HCL [Glucophage] 500 mg PO BID #60 tab 09/18/19 Allergies Allergy/AdvReac Type Severity Reaction Status Date / Time No Known Allergies Allergy Verified 09/18/19 16:24 Review of Systems ROS Other: All systems not noted in ROS Statement are negative. <Ihsan Spencer - Last Filed: 09/18/19 17:41> ROS Other: All systems not noted in ROS Statement are negative. <Ally Dubois - Last Filed: 09/22/19 02:16> ROS Statement: Those systems with pertinent positive or pertinent negative responses have been documented in the HPI. Past Medical History Past Medical History: Diabetes Mellitus, Hypertension History of Any Multi-Drug Resistant Organisms: None Reported Past Surgical History: No Surgical Hx Reported Past Anesthesia/Blood Transfusion Reactions: No Reported Reaction Past Psychological History: No Psychological Hx Reported Smoking Status: Never smoker Past Alcohol Use History: None Reported Past Drug Use History: None Reported - Past Family History Father Family Medical History: COPD Mother Family Medical History: No Reported History Additional Family Medical History / Comment(s): hepatitis <Ihsan Spencer - Last Filed: 09/18/19 17:41> General Exam Limitations: no limitations General appearance: alert, in no apparent distress Head exam: Present: atraumatic, normocephalic, normal inspection Eye exam: Present: normal appearance, PERRL, EOMI Pupils: Present: normal accommodation ENT exam: Present: normal exam, normal oropharynx, mucous membranes moist Neck exam: Present: normal inspection, full ROM Respiratory exam: Present: normal lung sounds bilaterally. Absent: respiratory distress, wheezes Cardiovascular Exam: Present: regular rate, normal rhythm, normal heart sounds GI/Abdominal exam: Present: soft. Absent: distended, tenderness, guarding Extremities exam: Present: normal inspection, full ROM. Absent: tenderness Back exam: Present: normal inspection, full ROM Neurological exam: Present: alert, oriented X3 Psychiatric exam: Present: normal affect, normal mood Skin exam: Present: warm, dry, intact, normal color <Ihsan Spencer - Last Filed: 09/18/19 17:41> Course Vital Signs 09/18/19 17:19 Temperature 98.1 F Pulse Rate 81 Respiratory 18 Rate Blood Pressure 138/71 O2 Sat by Pulse 100 Oximetry Medical Decision Making - Lab Data Result diagrams: 09/18/19 15:45 09/18/19 15:45 <Ihsan Spencer - Last Filed: 09/18/19 17:41> - Lab Data Result diagrams: 09/18/19 15:45 09/18/19 15:45 <Ally Dubois - Last Filed: 09/22/19 02:16> - Medical Decision Making Patient is a 54-year-old male with history of DKA type 2 diabetes. presenting to emergency Department with chief complaint of high blood sugar. Patient has been out of his medication for about 1 month. CBC is unremarkable. CMP reveals hyperglycemia of 233. Acetone negative. Magnesium and potassium within normal limits. Patient given 2 L of bolus fluids. UA reveals plus for glucose and +2 ketones just and dehydration. No signs of DKA. Patient I will refill his medication of insulin glargine and metformin. Patient is set to follow-up next month with a primary care physician. Return parameters were thoroughly discussed the patient was understanding and agreeable. Case discussed with physician. (Ihsan Spencer) I was available for consultation in the emergency department. The history and physical exam were done by the midlevel provider. I was consulted for [facility]. I reviewed the case with the midlevel provider and based on their presentation of the patient, I agree with the assessment, medical decision making and plan of care as documented. Chart was dictated using [employer] dictation software. Attempts were made to correct any dictation errors however some typographical errors may persist. Patient was seen during a national state of emergency due to the Covid-19 pandemic. (Ally Dubois) - Lab Data Lab Results 09/18/19 09/18/19 09/18/19 Range/Units 15:45 15:45 15:45 WBC 8.2 (3.8-10.6) k/uL RBC 5.25 (4.30-5.90) m/uL Hgb 14.7 (13.0-17.5) gm/dL Hct 45.6 (39.0-53.0) % MCV 86.8 (80.0-100.0) fL MCH 27.9 (25.0-35.0) pg MCHC 32.2 (31.0-37.0) g/dL RDW 13.2 (11.5-15.5) % Plt Count 226 (150-450) k/uL Neutrophils % 72 % Lymphocytes % 19 % Monocytes % 4 % Eosinophils % 2 % Basophils % 1 % Neutrophils # 5.9 (1.3-7.7) k/uL Lymphocytes # 1.6 (1.0-4.8) k/uL Monocytes # 0.4 (0-1.0) k/uL Eosinophils # 0.2 (0-0.7) k/uL Basophils # 0.0 (0-0.2) k/uL VBG pH (7.31-7.41) VBG pCO2 (37-51) mmHg VBG HCO3 (24-28) mmol/L Sodium 137 (137-145) mmol/L Potassium 4.2 (3.5-5.1) mmol/L Chloride 106 (98-107) mmol/L Carbon Dioxide 21 L (22-30) mmol/L Anion Gap 10 mmol/L BUN 14 (9-20) mg/dL Creatinine 0.87 (0.66-1.25) mg/dL Est GFR (CKD-EPI)AfAm >90 (>60 ml/min/1.73 sqM) Est GFR (CKD-EPI)NonAf >90 (>60 ml/min/1.73 sqM) Glucose 285 H (74-99) mg/dL POC Glucose (mg/dL) (75-99) mg/dL POC Glu Shift Production Supervisor ID Calcium 9.2 (8.4-10.2) mg/dL Magnesium 2.0 (1.6-2.3) mg/dL Total Bilirubin 0.4 (0.2-1.3) mg/dL AST 31 (17-59) U/L ALT 41 (4-49) U/L Alkaline Phosphatase 96 (38-126) U/L Total Protein 7.5 (6.3-8.2) g/dL Albumin 4.2 (3.5-5.0) g/dL Urine Color Light Yellow Urine Appearance Clear (Clear) Urine pH 5.5 (5.0-8.0) Ur Specific Nunez 1.035 (1.001-1.035) Urine Protein Negative (Negative) Urine Glucose (UA) 4+ H (Negative) Urine Ketones 2+ H (Negative) Urine Blood Negative (Negative) Urine Nitrite Negative (Negative) Urine Bilirubin Negative (Negative) Urine Urobilinogen <2.0 (<2.0) mg/dL Ur Leukocyte Esterase Negative (Negative) Acetone, Qual Negative (Negative) 09/18/19 09/18/19 Range/Units 15:45 16:23 WBC (3.8-10.6) k/uL RBC (4.30-5.90) m/uL Hgb (13.0-17.5) gm/dL Hct (39.0-53.0) % MCV (80.0-100.0) fL MCH (25.0-35.0) pg MCHC (31.0-37.0) g/dL RDW (11.5-15.5) % Plt Count (150-450) k/uL Neutrophils % % Lymphocytes % % Monocytes % % Eosinophils % % Basophils % % Neutrophils # (1.3-7.7) k/uL Lymphocytes # (1.0-4.8) k/uL Monocytes # (0-1.0) k/uL Eosinophils # (0-0.7) k/uL Basophils # (0-0.2) k/uL VBG pH 7.38 (7.31-7.41) VBG pCO2 37 (37-51) mmHg VBG HCO3 21 L (24-28) mmol/L Sodium (137-145) mmol/L Potassium (3.5-5.1) mmol/L Chloride (98-107) mmol/L Carbon Dioxide (22-30) mmol/L Anion Gap mmol/L BUN (9-20) mg/dL Creatinine (0.66-1.25) mg/dL Est GFR (CKD-EPI)AfAm (>60 ml/min/1.73 sqM) Est GFR (CKD-EPI)NonAf (>60 ml/min/1.73 sqM) Glucose (74-99) mg/dL POC Glucose (mg/dL) 233 H (75-99) mg/dL POC Glu Shift Production Supervisor Kindra Estevez Calcium (8.4-10.2) mg/dL Magnesium (1.6-2.3) mg/dL Total Bilirubin (0.2-1.3) mg/dL AST (17-59) U/L ALT (4-49) U/L Alkaline Phosphatase (38-126) U/L Total Protein (6.3-8.2) g/dL Albumin (3.5-5.0) g/dL Urine Color Urine Appearance (Clear) Urine pH (5.0-8.0) Ur Specific Nunez (1.001-1.035) Urine Protein (Negative) Urine Glucose (UA) (Negative) Urine Ketones (Negative) Urine Blood (Negative) Urine Nitrite (Negative) Urine Bilirubin (Negative) Urine Urobilinogen (<2.0) mg/dL Ur Leukocyte Esterase (Negative) Acetone, Qual (Negative) Disposition Is patient prescribed a controlled substance at d/c from ED?: No Time of Disposition: 17:41 <Ihsan Spencer - Last Filed: 09/18/19 17:41> <Ally Dubois - Last Filed: 09/22/19 02:16> Clinical Impression: Dehydration, Hyperglycemia due to type 2 diabetes mellitus Disposition: HOME SELF-CARE Condition: Good Instructions (If sedation given, give patient instructions): Type 2 Diabetes Management for Adolescents (ED) Additional Instructions: Take prescribed medication as directed. Follow-up with your primary care. Return to emergency department if symptoms worsen. Prescriptions: metFORMIN HCL [Glucophage] 500 mg PO BID #60 tab Insulin Glargine,Hum.rec.anlog [Lantus Solostar] 12 unit SQ HS #3 pen Referrals: None,Stated [Primary Care Provider] - 1-2 days
[2019-09-18 16:04] LABS: Appearance,Urine Clear (Clear); Bilirubin,Urine Negative (Negative); Blood,Urine Negative (Negative); Color,Urine Light Yellow; Glucose,Urine (UA) 4+ (Negative); Leukocyte Esterase,Urine Negative (Negative); Nitrite,Urine Negative (Negative); PH, Urine 5.5 (5.0-8.0); Protein,Urine Negative (Negative); Specific Gravity,Urine 1.035 (1.001-1.035); Urobilinogen,Urine <2.0 mg/dL (<2.0)
[2019-09-18 16:06] LABS: Basophils % (A) 1 %; Eosinophils # (A) 0.2 k/uL (0-0.7); Eosinophils % (A) 2 %; HCT 45.6 % (39.0-53.0); HGB 14.7 gm/dL (13.0-17.5); Lymphocytes # (A) 1.6 k/uL (1.0-4.8); Lymphocytes % (A) 19 %; MCH 27.9 pg (25.0-35.0); MCHC 32.2 g/dL (31.0-37.0); MCV 86.8 fL (80.0-100.0); Mean Platelet Volume 9.3; Monocytes # (A) 0.4 k/uL (0-1.0); Monocytes % (A) 4 %; Neutrophils # (A) 5.9 k/uL (1.3-7.7); Neutrophils % (A) 72 %; Platelet Count 226 k/uL (150-450); RBC 5.25 m/uL (4.30-5.90); RDW 13.2 % (11.5-15.5); WBC 8.2 k/uL (3.8-10.6)
[2019-09-18 16:21] LABS: ALT 41 U/L (4-49); AST 31 U/L (17-59); African American GFR (CKD) >90 (>60 ml/min/1.73 sqM); Albumin 4.2 g/dL (3.5-5.0); Alkaline Phosphatase 96 U/L (38-126); Anion Gap 10 mmol/L; Blood Urea Nitrogen 14 mg/dL (9-20); Calcium 9.2 mg/dL (8.4-10.2); Carbon Dioxide 21 mmol/L (22-30); Chloride 106 mmol/L (98-107); Glucose 285 mg/dL (74-99); Non-African American GFR(CKD) >90 (>60 ml/min/1.73 sqM); Potassium 4.2 mmol/L (3.5-5.1); Sodium 137 mmol/L (137-145); Total Bilirubin 0.4 mg/dL (0.2-1.3); Total Protein 7.5 g/dL (6.3-8.2)
[2019-09-18 16:25] LABS: VBG PH 7.38 (7.31-7.41)
[2019-09-18 16:26] LABS: Glucose,Whole Blood 233 mg/dL (75-99)
[2019-09-18 16:43] LABS: Ketones,Urine 2+ (Negative)
[2019-09-18 17:20] VITALS: BP 138/71; PULSE 81; RESP 18; TEMP 98.1
== END 2019-09-18 18:07 | disposition home or self-care (01) ==
LOC: EC 13:59
DX: E11.65 Type 2 diabetes mellitus with hyperglycemia (principal); E86.0 Dehydration; Z79.4 Long term (current) use of insulin
CPT/HCPCS: 36415; 80053; 81003; 82009; 82803; 83735; 85025; 96360; 96361; 99283

== ENCOUNTER 2021-01-25 00:13 | Emergency (ER) | payer BC, OTHER ==
[2021-01-25 00:32] VITALS: BP 135/81; PULSE 85; RESP 18; TEMP 99.2
[2021-01-25 00:40] LABS: Glucose,Whole Blood 454 mg/dL (75-99)
--- NOTE | 2021-01-25 01:03 | ED ---
Recheck HPI - General Chief Complaint: Recheck/Abnormal Lab/Rx Stated Complaint: Med Refill Time Seen by Provider: 01/25/21 00:41 Source: patient Mode of arrival: ambulatory - History of Present Illness Initial Comments: 55-year-old male patient presents to the emergency department today requesting refill on his insulin. Patient states that he is between insurances because he started a new job. States that he took Lantus nightly. It was also on metformin but stopped that quite some time ago due to side effects. Denies any nausea, vomiting, diarrhea. Denies fever or chills. Denies any chest pain or shortness of breath. States he does have some mild weakness and has been urinating a lot. Denies any other concerns. - Related Data Home Medications Medication Instructions Recorded Confirmed Insulin Glargine,Hum.rec.anlog 12 unit SQ HS 09/18/19 09/18/19 [Lantus Solostar] Previous Rx's Medication Instructions Recorded metFORMIN HCL [Glucophage] 500 mg PO BID #60 tab 07/22/19 Insulin Glargine,Hum.rec.anlog 12 unit SQ HS #3 pen 09/18/19 [Lantus Solostar Pen] metFORMIN HCL [Glucophage] 500 mg PO BID #60 tab 09/18/19 Insulin Glargine,Hum.rec.anlog 16 unit SQ DAILY #3 each 01/25/21 [Lantus Solostar Pen] Allergies Allergy/AdvReac Type Severity Reaction Status Date / Time No Known Allergies Allergy Verified 01/25/21 00:31 Review of Systems ROS Statement: Those systems with pertinent positive or pertinent negative responses have been documented in the HPI. ROS Other: All systems not noted in ROS Statement are negative. Past Medical History Past Medical History: Diabetes Mellitus, Hypertension History of Any Multi-Drug Resistant Organisms: None Reported Past Surgical History: No Surgical Hx Reported Past Anesthesia/Blood Transfusion Reactions: No Reported Reaction Past Psychological History: No Psychological Hx Reported Smoking Status: Never smoker Past Alcohol Use History: None Reported Past Drug Use History: None Reported - Past Family History Father Family Medical History: COPD Mother Family Medical History: No Reported History Additional Family Medical History / Comment(s): hepatitis General Exam General appearance: alert, in no apparent distress, other (This is a well- developed, well-nourished adult male patient in no acute distress) Respiratory exam: Present: normal lung sounds bilaterally. Absent: respiratory distress, wheezes, rales, rhonchi, stridor Cardiovascular Exam: Present: regular rate, normal rhythm, normal heart sounds. Absent: systolic murmur, diastolic murmur, rubs, gallop, clicks GI/Abdominal exam: Present: soft, normal bowel sounds. Absent: distended, tenderness, guarding, rebound, rigid Neurological exam: Present: alert, oriented X3, CN II-XII intact Psychiatric exam: Present: normal affect, normal mood Skin exam: Present: warm, dry, intact, normal color. Absent: rash Course Vital Signs 01/25/21 00:28 Temperature 99.2 F Pulse Rate 85 Respiratory 18 Rate Blood Pressure 135/81 O2 Sat by Pulse 97 Oximetry Medical Decision Making - Medical Decision Making 55-year-old male patient presented to the emergency department today requesting Lantus refill. States his been off for the last couple of months. Physical examination is unremarkable. Blood sugar was elevated around 450. Patient declines having lab testing or further workup states he would just like a refill of his medication. States he does have money to pay for the prescription. He is given dose of Lantus here. He'll be discharged with prescription. Return parameters were discussed in detail. He verbalizes understanding and agrees with this plan. My attending is Dr. Walters. - Lab Data Lab Results 01/25/21 Range/Units 00:38 POC Glucose (mg/dL) 454 H (75-99) mg/dL POC Glu Physical Education Teacher ID Franck Thakkar Disposition Clinical Impression: Medication refill Disposition: HOME SELF-CARE Condition: Good Instructions (If sedation given, give patient instructions): Medicine Refill (ED) Additional Instructions: Increase fluids. Follow-up with physician as soon as possible. Return for any new, worsening, or concerning symptoms. Prescriptions: Insulin Glargine,Hum.rec.anlog [Lantus Solostar Pen] 16 unit SQ DAILY #3 each Is patient prescribed a controlled substance at d/c from ED?: No Referrals: None,Stated [Primary Care Provider] - 1-2 days Time of Disposition: 01:03
[2021-01-25] MEDS ORDERED: INSULIN DETEMIR (LEVEMIR) 100 UNIT/ML SYR SQ ONE (01:15)
== END 2021-01-25 01:25 | disposition home or self-care (01) ==
LOC: EC 00:13
DX: Z76.0 Encounter for issue of repeat prescription (principal); I10 Essential (primary) hypertension; E11.9 Type 2 diabetes mellitus without complications; Z79.4 Long term (current) use of insulin
CPT/HCPCS: 36415; 99282

== ENCOUNTER 2021-01-26 06:27 | Emergency (ER) | payer BC, OTHER ==
[2021-01-26 07:21] LABS: Glucose,Whole Blood 436 mg/dL (75-99)
[2021-01-26] MEDS ORDERED: SODIUM CHLORIDE 0.9% 2,000 ML IV ONE (07:40)
[2021-01-26 07:55] LABS: Basophils # (A) 0.1 k/uL (0-0.2); Basophils % (A) 0 %; Eosinophils # (A) 0.2 k/uL (0-0.7); Eosinophils % (A) 2 %; HCT 42.5 % (39.0-53.0); HGB 14.1 gm/dL (13.0-17.5); Lymphocytes # (A) 2.4 k/uL (1.0-4.8); Lymphocytes % (A) 21 %; MCH 29.3 pg (25.0-35.0); MCHC 33.2 g/dL (31.0-37.0); MCV 88.3 fL (80.0-100.0); Mean Platelet Volume 9.7; Monocytes # (A) 0.6 k/uL (0-1.0); Monocytes % (A) 5 %; Neutrophils # (A) 7.9 k/uL (1.3-7.7); Neutrophils % (A) 70 %; Platelet Count 228 k/uL (150-450); RBC 4.82 m/uL (4.30-5.90); RDW 11.6 % (11.5-15.5); WBC 11.3 k/uL (3.8-10.6)
[2021-01-26 08:26] LABS: Appearance,Urine Clear (Clear); Bilirubin,Urine Negative (Negative); Blood,Urine Negative (Negative); Color,Urine Light Yellow; Glucose,Urine (UA) 4+ (Negative); Ketones,Urine 1+ (Negative); Leukocyte Esterase,Urine Negative (Negative); Nitrite,Urine Negative (Negative); PH, Urine 5.5 (5.0-8.0); Protein,Urine Negative (Negative); Specific Gravity,Urine 1.035 (1.001-1.035); Urobilinogen,Urine <2.0 mg/dL (<2.0)
[2021-01-26 08:33] LABS: ALT 25 U/L (4-49); AST 18 U/L (17-59); African American GFR (CKD) 84 (>60 ml/min/1.73 sqM); Albumin 4.3 g/dL (3.5-5.0); Alkaline Phosphatase 143 U/L (38-126); Anion Gap 13 mmol/L; Blood Urea Nitrogen 18 mg/dL (9-20); Calcium 10.1 mg/dL (8.4-10.2); Carbon Dioxide 21 mmol/L (22-30); Chloride 101 mmol/L (98-107); Glucose 486 mg/dL (74-99); Magnesium 2.3 mg/dL (1.6-2.3); Non-African American GFR(CKD) 72 (>60 ml/min/1.73 sqM); Potassium 4.4 mmol/L (3.5-5.1); Sodium 135 mmol/L (137-145); Total Bilirubin 0.8 mg/dL (0.2-1.3)
[2021-01-26 09:13] VITALS: RESP 16; TEMP 98
[2021-01-26 09:28] LABS: Glucose,Whole Blood 341 mg/dL (75-99)
[2021-01-26] MEDS ORDERED: INSULIN ASPART (NovoLOG) 100 UNIT/ML VIAL SQ ONE ×3 (09:50→10:24)
[2021-01-26 10:19] LABS: Glucose,Whole Blood 311 mg/dL (75-99)
[2021-01-26 10:31] VITALS: BP 128/80; PULSE 83
[2021-01-26 10:56] LABS: Glucose,Whole Blood 286 mg/dL (75-99)
--- NOTE | 2021-01-26 10:56 | ED ---
General Adult HPI - General Chief complaint: Recheck/Abnormal Lab/Rx Stated complaint: Diabetes, High blood sugar Time Seen by Provider: 01/26/21 07:11 Source: patient, RN notes reviewed, old records reviewed Mode of arrival: ambulatory Limitations: no limitations - History of Present Illness Initial comments: Patient is a 55-year-old male with past medical history remarkable for poorly controlled diabetes mellitus presents emergency department for recheck after having her blood sugar earlier. He states he is having similar episodes of high blood sugar after being seen yesterday. They did not trauma at that time. Is benign complaint with insulin and metformin. He is complaining of thirst. Illnesses states he has mild blurry vision which is typical for his hyperglycemia that resolves when hyperglycemia results. He denies any chest pain, shortness breath, abdominal pain, nausea, vomiting. Denies any headache, weakness, numbness. Has no other acute complaints at this time. Denies any cough, fevers, chest pain. States that his blurry vision is improving. He states he is not feeling better and decided to come back to be evaluated. Denies any nausea, vomiting, abdominal pain. Endorses polyuria. - Related Data Home Medications Medication Instructions Recorded Confirmed Insulin Glargine,Hum.rec.anlog 16 unit SQ HS 01/26/21 01/26/21 [Lantus Solostar Pen] Allergies Allergy/AdvReac Type Severity Reaction Status Date / Time No Known Allergies Allergy Verified 01/26/21 07:30 Review of Systems ROS Statement: Those systems with pertinent positive or pertinent negative responses have been documented in the HPI. Review of Systems: CONST: Denies fever EYES: Denies any new blurry vision. ENT: Denies nasal congestion C/V: Denies Chest pain RESP: Denies shortness of breath GI: Denies abdominal pain : Denies dysuria SKIN: Denies rash. MSK: Denies joint pain. NEURO: Denies headache ROS Other: All systems not noted in ROS Statement are negative. Past Medical History Past Medical History: Diabetes Mellitus, Hypertension History of Any Multi-Drug Resistant Organisms: None Reported Past Surgical History: No Surgical Hx Reported Past Anesthesia/Blood Transfusion Reactions: No Reported Reaction Past Psychological History: No Psychological Hx Reported Smoking Status: Never smoker Past Alcohol Use History: None Reported Past Drug Use History: None Reported - Past Family History Father Family Medical History: COPD Mother Family Medical History: No Reported History Additional Family Medical History / Comment(s): hepatitis General Exam - General Exam Comments Initial Comments: General: Appears in no acute distress. HEAD: Normal with no signs of head trauma. EYES: PERRLA, EOMI, conjunctiva normal, no discharge. ENT: Hearing grossly intact, normal oropharynx. Mildly dry mucous membranes. RESPIRATORY: Clear breath sounds bilaterally. No wheezes, rales, or rhonchi. C/V: Regular rate and rhythm. S1 and S2 auscultated, no edema, peripheral puls es 2+ and intact throughout ABD: Abd is soft, nontender, nondistended EXT: Normal range of motion, no obvious deformity SKIN: No rashes or lesions observed on exposed skin. NEURO: Alert and oriented x 4. Cranial nerves II-XII intact. No focal sensory or strength deficits. Limitations: no limitations Course Vital Signs 01/26/21 01/26/21 01/26/21 06:51 09:12 10:30 Temperature 99.1 F 98 F Pulse Rate 99 86 83 Respiratory 18 16 Rate Blood Pressure 125/65 121/80 128/80 O2 Sat by Pulse 97 98 99 Oximetry Medical Decision Making - Medical Decision Making Based on the patient's presentation and physical exam, I'm concerned for acute hyperglycemia, but cannot rule out the possibility of DKA. Therefore we'll obtain basic laboratory studies. He will be given multiple fluid boluses. Patient was in agreement this plan. Laboratory studies were remarkable for mild leukocytosis of 11.3. Sodium is 135. He is hyperglycemic to 486.Admitted the patient's laboratory studies are unremarkable. He does have 4+ glucose in his urine. Acetone is negative. Patient's feeling improved on reevaluation. He has tolerated by mouth intake. Repeat sugar is 341. We will provide him with 8 units of insulin and rechecked his sugar. Patient was in agreement this plan. After 8 units of insulin, sugar is 311. We'll provide him with an additional 8 units. This dropped her sugar to 286. He is feeling improved. Patient states his vision is improved. His no other acute complaints at this time. I believe it is safe for him to go home and he was in agreement this plan. I advised that he restart his metformin and insulin, both of which she received a prescription's for and has. Patient was in agreement this plan and will follow up with his PCP. I instructed the patient to follow up with their PCP in the next 3 days. I e xplained that the patient should return to the emergency department if they experience any worsening symptoms. Strict return precautions were discussed with the patient. The patient expressed understanding of these instructions. I answered all questions that the patient had. The patient was discharged home in good condition with their prescriptions and follow up information. - Lab Data Result diagrams: 01/26/21 07:45 01/26/21 07:45 Lab Results 01/26/21 01/26/21 01/26/21 Range/Units 07:19 07:45 07:45 WBC 11.3 H (3.8-10.6) k/uL RBC 4.82 (4.30-5.90) m/uL Hgb 14.1 (13.0-17.5) gm/dL Hct 42.5 (39.0-53.0) % MCV 88.3 (80.0-100.0) fL MCH 29.3 (25.0-35.0) pg MCHC 33.2 (31.0-37.0) g/dL RDW 11.6 (11.5-15.5) % Plt Count 228 (150-450) k/uL MPV 9.7 Neutrophils % 70 % Lymphocytes % 21 % Monocytes % 5 % Eosinophils % 2 % Basophils % 0 % Neutrophils # 7.9 H (1.3-7.7) k/uL Lymphocytes # 2.4 (1.0-4.8) k/uL Monocytes # 0.6 (0-1.0) k/uL Eosinophils # 0.2 (0-0.7) k/uL Basophils # 0.1 (0-0.2) k/uL Sodium 135 L (137-145) mmol/L Potassium 4.4 (3.5-5.1) mmol/L Chloride 101 (98-107) mmol/L Carbon Dioxide 21 L (22-30) mmol/L Anion Gap 13 mmol/L BUN 18 (9-20) mg/dL Creatinine 1.14 (0.66-1.25) mg/dL Est GFR (CKD-EPI)AfAm 84 (>60 ml/min/1.73 sqM) Est GFR (CKD-EPI)NonAf 72 (>60 ml/min/1.73 sqM) Glucose 486 H (74-99) mg/dL POC Glucose (mg/dL) 436 H (75-99) mg/dL POC Glu Temperature Logging Operator ID Jaye Carver Calcium 10.1 (8.4-10.2) mg/dL Magnesium 2.3 (1.6-2.3) mg/dL Total Bilirubin 0.8 (0.2-1.3) mg/dL AST 18 (17-59) U/L ALT 25 (4-49) U/L Alkaline Phosphatase 143 H (38-126) U/L Total Protein 8.0 (6.3-8.2) g/dL Albumin 4.3 (3.5-5.0) g/dL Urine Color Urine Appearance (Clear) Urine pH (5.0-8.0) Ur Specific [place] (1.001-1.035) Urine Protein (Negative) Urine Glucose (UA) (Negative) Urine Ketones (Negative) Urine Blood (Negative) Urine Nitrite (Negative) Urine Bilirubin (Negative) Urine Urobilinogen (<2.0) mg/dL Ur Leukocyte Esterase (Negative) Acetone, Qual Negative (Negative) 01/26/21 01/26/21 01/26/21 Range/Units 07:45 09:27 10:17 WBC (3.8-10.6) k/uL RBC (4.30-5.90) m/uL Hgb (13.0-17.5) gm/dL Hct (39.0-53.0) % MCV (80.0-100.0) fL MCH (25.0-35.0) pg MCHC (31.0-37.0) g/dL RDW (11.5-15.5) % Plt Count (150-450) k/uL MPV Neutrophils % % Lymphocytes % % Monocytes % % Eosinophils % % Basophils % % Neutrophils # (1.3-7.7) k/uL Lymphocytes # (1.0-4.8) k/uL Monocytes # (0-1.0) k/uL Eosinophils # (0-0.7) k/uL Basophils # (0-0.2) k/uL Sodium (137-145) mmol/L Potassium (3.5-5.1) mmol/L Chloride (98-107) mmol/L Carbon Dioxide (22-30) mmol/L Anion Gap mmol/L BUN (9-20) mg/dL Creatinine (0.66-1.25) mg/dL Est GFR (CKD-EPI)AfAm (>60 ml/min/1.73 sqM) Est GFR (CKD-EPI)NonAf (>60 ml/min/1.73 sqM) Glucose (74-99) mg/dL POC Glucose (mg/dL) 341 H 311 H (75-99) mg/dL POC Glu Temperature Logging Operator ID Oleary, Brandie Oleary, Brandie Calcium (8.4-10.2) mg/dL Magnesium (1.6-2.3) mg/dL Total Bilirubin (0.2-1.3) mg/dL AST (17-59) U/L ALT (4-49) U/L Alkaline Phosphatase (38-126) U/L Total Protein (6.3-8.2) g/dL Albumin (3.5-5.0) g/dL Urine Color Light Yellow Urine Appearance Clear (Clear) Urine pH 5.5 (5.0-8.0) Ur Specific [place] 1.035 (1.001-1.035) Urine Protein Negative (Negative) Urine Glucose (UA) 4+ H (Negative) Urine Ketones 1+ H (Negative) Urine Blood Negative (Negative) Urine Nitrite Negative (Negative) Urine Bilirubin Negative (Negative) Urine Urobilinogen <2.0 (<2.0) mg/dL Ur Leukocyte Esterase Negative (Negative) Acetone, Qual (Negative) 01/26/21 Range/Units 10:53 WBC (3.8-10.6) k/uL RBC (4.30-5.90) m/uL Hgb (13.0-17.5) gm/dL Hct (39.0-53.0) % MCV (80.0-100.0) fL MCH (25.0-35.0) pg MCHC (31.0-37.0) g/dL RDW (11.5-15.5) % Plt Count (150-450) k/uL MPV Neutrophils % % Lymphocytes % % Monocytes % % Eosinophils % % Basophils % % Neutrophils # (1.3-7.7) k/uL Lymphocytes # (1.0-4.8) k/uL Monocytes # (0-1.0) k/uL Eosinophils # (0-0.7) k/uL Basophils # (0-0.2) k/uL Sodium (137-145) mmol/L Potassium (3.5-5.1) mmol/L Chloride (98-107) mmol/L Carbon Dioxide (22-30) mmol/L Anion Gap mmol/L BUN (9-20) mg/dL Creatinine (0.66-1.25) mg/dL Est GFR (CKD-EPI)AfAm (>60 ml/min/1.73 sqM) Est GFR (CKD-EPI)NonAf (>60 ml/min/1.73 sqM) Glucose (74-99) mg/dL POC Glucose (mg/dL) 286 H (75-99) mg/dL POC Glu Temperature Logging Operator ID Brandie Oleary Calcium (8.4-10.2) mg/dL Magnesium (1.6-2.3) mg/dL Total Bilirubin (0.2-1.3) mg/dL AST (17-59) U/L ALT (4-49) U/L Alkaline Phosphatase (38-126) U/L Total Protein (6.3-8.2) g/dL Albumin (3.5-5.0) g/dL Urine Color Urine Appearance (Clear) Urine pH (5.0-8.0) Ur Specific [place] (1.001-1.035) Urine Protein (Negative) Urine Glucose (UA) (Negative) Urine Ketones (Negative) Urine Blood (Negative) Urine Nitrite (Negative) Urine Bilirubin (Negative) Urine Urobilinogen (<2.0) mg/dL Ur Leukocyte Esterase (Negative) Acetone, Qual (Negative) Disposition Clinical Impression: Hyperglycemia due to diabetes mellitus, Uncontrolled diabetes mellitus Disposition: HOME SELF-CARE Condition: Good Instructions (If sedation given, give patient instructions): Type 2 Diabetes Management for Adults (ED) Additional Instructions: Follow-up with your PCP for further diabetes management. Restart insulin and metformin. Is patient prescribed a controlled substance at d/c from ED?: No Referrals: None,Stated [Primary Care Provider] - 1-2 days
== END 2021-01-26 11:04 | disposition home or self-care (01) ==
LOC: EC 06:27
DX: E11.65 Type 2 diabetes mellitus with hyperglycemia (principal); I10 Essential (primary) hypertension; Z79.4 Long term (current) use of insulin
CPT/HCPCS: 36415; 80053; 81003; 82009; 83735; 85025; 96360; 99283

== ENCOUNTER 2021-04-12 04:58 | Inpatient (IN) | payer BC ==
[2021-04-12] MEDS ORDERED: ACETAMINOPHEN TAB 500 MG TAB PO STA (05:03)
[2021-04-12] MEDS ORDERED: KETOROLAC 15 MG/ML 1 ML VIAL IVP STA (05:03)
[2021-04-12] MEDS ORDERED: SODIUM CHLORIDE 0.9% 500 ML 500 ML IV STA (05:03)
[2021-04-12] MEDS ORDERED: DEXAMETHASONE SOD PHOSPHATE 10 MG/ML 1 ML VIAL IVP STA (05:03)
--- NOTE | 2021-04-12 05:19 | ED ---
SOB HPI - General Chief Complaint: Shortness of Breath Stated Complaint: Shortness of Breath Time Seen by Provider: 04/12/21 05:02 Source: patient, RN notes reviewed, old records reviewed Mode of arrival: ambulatory Limitations: no limitations - History of Present Illness Initial Comments: This is a 55-year-old male to the ER today for evaluation. Patient presents today for evaluation regards to fever cough congestion shortness of breath going on day 7 date of coronavirus. She initially lost taste and smell which made him understand that he probably had coronavirus he has not been tested yet. Shortness of breath got significantly worse today and is unable to exert himself MD Complaint: shortness of breath, cough -: days(s) Radiation: back Severity: moderate Severity scale (1-10): 4 Quality: dull, aching Consistency: constant Improves With: nothing Worsens With: nothing Known History Of: diabetes Context: recent URI, recent illness (COVID 19) Associated Symptoms: chest pain, cough Treatments Prior to Arrival: oxygen - Related Data Home Medications Medication Instructions Recorded Confirmed Insulin Glargine,Hum.rec.anlog 16 unit SQ HS 01/26/21 04/12/21 [Lantus Solostar Pen] Allergies Allergy/AdvReac Type Severity Reaction Status Date / Time No Known Allergies Allergy Verified 04/12/21 07:26 Review of Systems ROS Statement: Those systems with pertinent positive or pertinent negative responses have been documented in the HPI. ROS Other: All systems not noted in ROS Statement are negative. Past Medical History Past Medical History: Diabetes Mellitus, Hypertension History of Any Multi-Drug Resistant Organisms: None Reported Past Surgical History: No Surgical Hx Reported Past Anesthesia/Blood Transfusion Reactions: No Reported Reaction Past Psychological History: No Psychological Hx Reported Smoking Status: Never smoker Past Alcohol Use History: None Reported Past Drug Use History: None Reported - Past Family History Father Family Medical History: COPD Mother Family Medical History: No Reported History Additional Family Medical History / Comment(s): hepatitis General Exam Limitations: no limitations General appearance: alert, in no apparent distress, anxious Head exam: Present: atraumatic, normocephalic, normal inspection Eye exam: Present: normal appearance, PERRL, EOMI. Absent: scleral icterus, conjunctival injection, periorbital swelling ENT exam: Present: normal exam, mucous membranes dry Neck exam: Present: normal inspection. Absent: tenderness, meningismus, lymphadenopathy Respiratory exam: Present: normal lung sounds bilaterally, respiratory distress, accessory muscle use, decreased breath sounds, prolonged expiratory. Absent: wheezes, rales, rhonchi, stridor Cardiovascular Exam: Present: normal rhythm, tachycardia, normal heart sounds. Absent: systolic murmur, diastolic murmur, rubs, gallop, clicks GI/Abdominal exam: Present: soft, normal bowel sounds. Absent: distended, tenderness, guarding, rebound, rigid Extremities exam: Present: normal inspection, full ROM, normal capillary refill. Absent: tenderness, pedal edema, joint swelling, calf tenderness Back exam: Present: normal inspection Neurological exam: Present: alert, oriented X3, CN II-XII intact Psychiatric exam: Present: normal affect, normal mood Skin exam: Present: warm, dry, intact, normal color. Absent: rash Course Vital Signs 04/12/21 04/12/21 04/12/21 05:03 05:17 05:41 Temperature 99.2 F Pulse Rate 114 H Pulse Rate [ Pulse Oximetery ] Respiratory 26 H 32 H Rate Blood Pressure 131/75 Blood Pressure [Right Arm] O2 Sat by Pulse 88 L 97 Oximetry 04/12/21 04/12/21 04/12/21 06:44 08:02 13:13 Temperature 98 F 98.2 F Pulse Rate 87 89 Pulse Rate [ 89 Pulse Oximetery ] Respiratory 28 H 16 18 Rate Blood Pressure 96/60 101/59 Blood Pressure 117/72 [Right Arm] O2 Sat by Pulse 95 94 L 96 Oximetry 04/12/21 16:00 Temperature Pulse Rate Pulse Rate [ Pulse Oximetery ] Respiratory 17 Rate Blood Pressure Blood Pressure [Right Arm] O2 Sat by Pulse Oximetry - Reevaluation(s) Reevaluation #1: 04/12/21 Medical records reviewed Reevaluation #2: 04/12/21 Patient improving with supplemental oxygen fever control here in the ER Reevaluation #3: 04/12/21 Patient is informed of results and questions have been answered - Consultations Consultation #1: spoke w [facility] who will admit the patient Medical Decision Making - Lab Data Result diagrams: 04/12/21 05:17 04/12/21 06:20 Lab Results 04/12/21 04/12/21 04/12/21 Range/Units 05:17 05:17 05:17 WBC 10.3 (3.8-10.6) k/uL RBC 5.40 (4.30-5.90) m/uL Hgb 15.7 (13.0-17.5) gm/dL Hct 47.8 (39.0-53.0) % MCV 88.4 (80.0-100.0) fL MCH 29.0 (25.0-35.0) pg MCHC 32.9 (31.0-37.0) g/dL RDW 12.8 (11.5-15.5) % Plt Count 208 (150-450) k/uL MPV 9.3 Neutrophils % 89 % Lymphocytes % 7 % Monocytes % 2 % Eosinophils % 0 % Basophils % 0 % Neutrophils # 9.2 H (1.3-7.7) k/uL Lymphocytes # 0.7 L (1.0-4.8) k/uL Monocytes # 0.2 (0-1.0) k/uL Eosinophils # 0.0 (0-0.7) k/uL Basophils # 0.0 (0-0.2) k/uL PT 10.2 (9.0-12.0) sec INR 0.9 (<1.2) APTT 25.9 (22.0-30.0) sec Plasma Lactic Acid Gerry 2.3 H* (0.7-2.0) mmol/L Troponin I (0.000-0.034) ng/mL NT-Pro-B Natriuret Pep pg/mL 04/12/21 04/12/21 Range/Units 05:17 05:17 WBC (3.8-10.6) k/uL RBC (4.30-5.90) m/uL Hgb (13.0-17.5) gm/dL Hct (39.0-53.0) % MCV (80.0-100.0) fL MCH (25.0-35.0) pg MCHC (31.0-37.0) g/dL RDW (11.5-15.5) % Plt Count (150-450) k/uL MPV Neutrophils % % Lymphocytes % % Monocytes % % Eosinophils % % Basophils % % Neutrophils # (1.3-7.7) k/uL Lymphocytes # (1.0-4.8) k/uL Monocytes # (0-1.0) k/uL Eosinophils # (0-0.7) k/uL Basophils # (0-0.2) k/uL PT (9.0-12.0) sec INR (<1.2) APTT (22.0-30.0) sec Plasma Lactic Acid Gerry (0.7-2.0) mmol/L Troponin I 0.025 (0.000-0.034) ng/mL NT-Pro-B Natriuret Pep 48 pg/mL - EKG Data -: EKG Interpreted by Me (EKG is sinus tachycardia 105 SD 128 QRS 80 QTC 436) Disposition Clinical Impression: Pneumonia due to COVID-19 virus, Coronavirus infection, Hypoxia Disposition: ADMITTED IP TO THIS HOSP Condition: Serious Is patient prescribed a controlled substance at d/c from ED?: No
[2021-04-12] MEDS ORDERED: ACETAMINOPHEN TAB 325 MG TAB PO PRN (05:32)
[2021-04-12] MEDS ORDERED: NALOXONE 0.4 MG/ML 1 ML VIAL IV PRN (05:32)
[2021-04-12] MEDS ORDERED: ONDANSETRON 4 MG/2 ML VIAL IVP PRN (05:32)
[2021-04-12] MEDS ORDERED: MORPHINE SULFATE 4 MG/ML SYRINGE IV PRN (05:32)
[2021-04-12] MEDS ORDERED: IBUPROFEN 400 MG TAB PO PRN (05:32)
[2021-04-12 05:41] LABS: Basophils % (A) 0 %; Eosinophils % (A) 0 %; HCT 47.8 % (39.0-53.0); HGB 15.7 gm/dL (13.0-17.5); Lymphocytes # (A) 0.7 k/uL (1.0-4.8); Lymphocytes % (A) 7 %; MCHC 32.9 g/dL (31.0-37.0); MCV 88.4 fL (80.0-100.0); Mean Platelet Volume 9.3; Monocytes # (A) 0.2 k/uL (0-1.0); Monocytes % (A) 2 %; Neutrophils # (A) 9.2 k/uL (1.3-7.7); Neutrophils % (A) 89 %; Platelet Count 208 k/uL (150-450); RDW 12.8 % (11.5-15.5); WBC 10.3 k/uL (3.8-10.6)
[2021-04-12 05:51] LABS: INR 0.9 (<1.2); Partial Thromboplastin Time 25.9 sec (22.0-30.0); Prothrombin Time 10.2 sec (9.0-12.0)
--- NOTE | 2021-04-12 06:12 | XR ---
EXAMINATION TYPE: XR chest 1V portable DATE OF EXAM: 04/12/2021 COMPARISON: 07/19/2019 HISTORY: Pneumonia TECHNIQUE: Single view FINDINGS: There are some mild interstitial infiltrate in the periphery of both lungs. There is no ple ural effusion. Pulmonary vascularity is normal. There are no hilar masses. Heart size is normal. IMPRESSION: There is new bilateral peripheral interstitial pneumonia compared to the old exam.
[2021-04-12 06:48] LABS: ALT 39 U/L (4-49); AST 54 U/L (17-59); African American GFR (CKD) 77 (>60 ml/min/1.73 sqM); Albumin 3.2 g/dL (3.5-5.0); Albumin/Globulin Ratio 0.9; Alkaline Phosphatase 71 U/L (38-126); Anion Gap 11 mmol/L; Blood Urea Nitrogen 18 mg/dL (9-20); Calcium 7.8 mg/dL (8.4-10.2); Carbon Dioxide 15 mmol/L (22-30); Chloride 106 mmol/L (98-107); Globulin 3.5 g/dL; Glucose 258 mg/dL (74-99); LDH 1701 U/L (313-618); Magnesium 2.3 mg/dL (1.6-2.3); Non-African American GFR(CKD) 67 (>60 ml/min/1.73 sqM); Potassium 3.9 mmol/L (3.5-5.1); Sodium 132 mmol/L (137-145); Total Bilirubin 0.6 mg/dL (0.2-1.3); Total Protein 6.7 g/dL (6.3-8.2)
[2021-04-12 07:34] LABS: C Reactive Protein 22.7 mg/dL (<1.0)
[2021-04-12] MEDS: ENOXAPARIN 40 MG/0.4 ML SYRINGE SQ SCH (08:01)
[2021-04-12] MEDS: SODIUM CHLORIDE 0.9% 1,000 ML IV SCH ×2 (12:11→17:13)
[2021-04-12 12:25] LABS: Glucose,Whole Blood 407 mg/dL (75-99)
[2021-04-12] MEDS: ASCORBIC ACID 500 MG TAB PO SCH ×2 (12:52→22:10)
[2021-04-12] MEDS: CHOLECALCIFEROL 25 MCG (1000 IU) TABLET PO SCH (12:52)
[2021-04-12] MEDS: ZINC SULFATE 220 MG CAP PO SCH (12:52)
[2021-04-12] MEDS ORDERED: INSULIN ASPART (NovoLOG) 100 UNIT/ML VIAL SQ ONE (12:54)
[2021-04-12 14:22] LABS: Appearance,Urine Clear (Clear); Bilirubin,Urine Negative (Negative); Blood,Urine Moderate (Negative); Color,Urine Yellow; Glucose,Urine (UA) 4+ (Negative); Ketones,Urine 1+ (Negative); Leukocyte Esterase,Urine Negative (Negative); Mucus,Urine Rare /hpf; Nitrite,Urine Negative (Negative); PH, Urine 5.5 (5.0-8.0); Protein,Urine 2+ (Negative); RBC,Urine 1 /hpf (0-5); Specific Gravity,Urine 1.037 (1.001-1.035); Squamous Epithelial Cell,Urine <1 /hpf (0-4); Urobilinogen,Urine <2.0 mg/dL (<2.0); WBC,Urine 1 /hpf (0-5)
--- NOTE | 2021-04-12 14:27 | P.CNPUL ---
History of Present Illness Consult date: 04/12/21 Requesting physician: Gordo Damon Reason for consult: dyspnea, hypoxemia, pneumonia Chief complaint: Dyspnea, hypoxia History of present illness: This is a pleasant 55-year-old -[place] male with past medical history hypertension, diabetes mellitus type 2, nonsmoker who is not vaccinated against COVID-19 came into the emergency department on 04/12/2021 with complaints of worsening dyspnea and hypoxia. He states his had symptoms of not feeling well, body aches, fever, loss of taste and smell for around 10 days. He tested positive for COVID-19 via PCR test in the emergency department. His pulse ox was 80% on room air, he is currently requiring 6 L of oxygen, and his pulse ox is 94%, hemodynamically stable. He does not appear to be in any acute distress, his chest x-ray in the emergency department showed new bilateral peripheral interstitial pneumonia. His lab work showed white blood cell count of 10.3, hemoglobin 15.7, his lymphocyte count 0.7, d-dimer is 1.14, sodium is 132, potassium is 3.9, chloride is 106, CO2 is 15, BUN is 18, creatinine is 1.2, glucose level was 258, ferrritin level pending,LDH 1701, troponin of 0.025, CRP 22.7, BNP 48. He is outside the window for Remdesivir, and he is not a candidate for monoclonal antibodies. He is started on Decadron, 6 mg daily, he is on Lovenox 40 mg daily, he is on multivitamins, he was given IV fluids at a rate of 1:30 ML per hour, he is tolerating oral intake, no nausea vomiting diarrhea. Review of Systems All systems: negative Constitutional: Reports anorexia, Reports fatigue, Reports fever, Reports malaise, Reports poor appetite, Reports weakness, Denies chills Eyes: denies blurred vision, denies pain Ears, nose, mouth and throat: Denies headache, Denies sore throat Cardiovascular: Denies chest pain, Denies shortness of breath Respiratory: Reports dyspnea, Denies cough Gastrointestinal: Denies abdominal pain, Denies diarrhea, Denies nausea, Denies vomiting Musculoskeletal: Denies myalgias Integumentary: Denies pruritus, Denies rash Neurological: Denies numbness, Denies weakness Psychiatric: Denies anxiety, Denies depression Endocrine: Denies fatigue, Denies weight change Past Medical History Past Medical History: Diabetes Mellitus, Hypertension Additional Past Medical History / Comment(s): IDDM type II, occasional lower back pain History of Any Multi-Drug Resistant Organisms: None Reported Past Surgical History: No Surgical Hx Reported Additional Past Surgical History / Comment(s): Pt states he has never had surgery Past Anesthesia/Blood Transfusion Reactions: Unable to Obtain Additional Past Anesthesia/Blood Transfusion Reaction / Comment(s): Pt has never had surgery. Smoking Status: Never smoker - Past Family History Father Family Medical History: COPD Mother Family Medical History: Liver Disease Additional Family Medical History / Comment(s): hepatitis Medications and Allergies Home Medications Medication Instructions Recorded Confirmed Type Insulin Glargine,Hum.rec.anlog 16 unit SQ HS 01/26/21 04/12/21 History [Lantus Solostar Pen] Allergies Allergy/AdvReac Type Severity Reaction Status Date / Time No Known Allergies Allergy Verified 04/12/21 07:26 Physical Exam Vitals: Vital Signs Temp Pulse Pulse Resp BP BP Pulse Ox 04/12/21 13:13 98.2 F 89 18 117/72 96 04/12/21 08:02 98 F 89 16 101/59 94 L 04/12/21 06:44 87 28 H 96/60 95 04/12/21 05:41 32 H 04/12/21 05:17 99.2 F 97 04/12/21 05:03 114 H 26 H 131/75 88 L Intake and Output 04/11/21 04/12/21 04/12/21 22:59 06:59 14:59 Other: Weight 95.254 kg 95.254 kg GENERAL EXAM: Alert, very pleasant, 55-year-old -[place] male, currently on 6 L of oxygen the pulse ox of 94%, sitting up on the gurney, eating in the emergency department, comfortable in no apparent distress. HEAD: Normocephalic/atraumatic. EYES: Normal reaction of pupils, equal size. Conjunctiva pink, sclera white. NOSE: Clear with pink turbinates. THROAT: No erythema or exudates. NECK: No masses, no JVD, no thyroid enlargement, no adenopathy. CHEST: No chest wall deformity. Symmetrical expansion. LUNGS: Equal air entry with basilar crackles CVS: Regular rate and rhythm, normal S1 and S2, no gallops, no murmurs, no rubs ABDOMEN: Soft, nontender. No hepatosplenomegaly, normal bowel sounds, no guarding or rigidity. EXTREMITIES: No clubbing, no edema, no cyanosis, 2+ pulses and upper and lower extremities. MUSCULOSKELETAL: Muscle strength and tone normal. SPINE: No scoliosis or deformity SKIN: No rashes CENTRAL NERVOUS SYSTEM: Alert and oriented -3. No focal deficits, tone is normal in all 4 extremities. PSYCHIATRIC: Alert and oriented -3. Appropriate affect. Intact judgment and insight. Results - Laboratory Findings CBC and BMP: 04/12/21 05:17 04/12/21 06:20 PT/INR, D-dimer PT 10.2 sec (9.0-12.0) 04/12/21 05: INR 0.9 (<1.2) 04/12/21 05:17 D-Dimer 1.14 mg/L FEU (<0.60) H 04/12/21 12:59 Abnormal lab findings: Abnormal Labs 04/12/21 04/12/21 04/12/21 05:17 05:17 06:05 Neutrophils # 9.2 H Lymphocytes # 0.7 L D-Dimer Sodium Carbon Dioxide Glucose POC Glucose (mg/dL) Plasma Lactic Acid Gerry 2.3 H* Calcium Lactate Dehydrogenase C-Reactive Protein Albumin Coronavirus (PCR) Detected A 04/12/21 04/12/21 04/12/21 06:20 12:23 12:59 Neutrophils # Lymphocytes # D-Dimer 1.14 H Sodium 132 L Carbon Dioxide 15 L Glucose 258 H POC Glucose (mg/dL) 407 H Plasma Lactic Acid Gerry Calcium 7.8 L Lactate Dehydrogenase 1701 H C-Reactive Protein 22.7 H Albumin 3.2 L Coronavirus (PCR) - Diagnostic Findings Chest x-ray: report reviewed, image reviewed Assessment and Plan Plan: Assessment: #1. Acute hypoxic respiratory failure related to acute COVID-19 pneumonia, patient coming to the emergency department on 04/12/2021 with 10 day symptoms of COVID-19 infection. Non-vaccinated against COVID-19. Tested positive today on 04/12/2021. Outside the window for Remdesivir, has been started on Decadron, and prophylactic anticoagulation in addition to multivitamins #2. Elevated d-dimer, will obtain lower extremity Dopplers and CTA chest to rule out possibility of DVT and pulmonary embolism #3. Elevated inflammatory markers related to the above #4. Mild hyponatremia related to poor oral intake and dehydration, patient is receiving gentle IV hydration #5. Diabetes mellitus type 2 and steroid-induced hyperglycemia #6. Nonsmoker Plan: Outside the wound of her Remdesivir Continue Decadron 6 mg daily Continue Lovenox 40 mg daily and multivitamins Today's d-dimer has been noted, obtain CT angiogram of the chest to rule out possibility of PE and lower extremity Dopplers for possibility of DVT We'll continue to follow his clinical course I performed a history & physical examination of the patient and discussed their management with my nurse practitioner, Arlene Schwartz. I reviewed the nurse practitioner's note and agree with the documented findings and plan of care. Lung sounds are positive fordim breath sounds with crackles throughout the lung fgaan. The findings and the impression was discussed with the patient. I att est to the documentation by the nurse practitioner. Time with Patient: Greater than 30
--- NOTE | 2021-04-12 15:05 | HP ---
HISTORY AND PHYSICAL DATE OF SERVICE: 04/12/2021 CHIEF COMPLAINT: Shortness of breath. HISTORY OF PRESENT ILLNESS: This 55-year-old gentleman with a past medical history of multiple medical problems, including diabetes mellitus and hypertension, being followed by Dr. Lynette Cooper in the outpatient setting, is unvaccinated. Patient was having shortness or breath and cough and sputum for the last several days, at least one and half weeks, and the patient came to [facility] and was admitted for further evaluation and treatment. Patient was found to be hypoxic. Chest x-ray, which was reviewed personally by me, showed acute bilateral interstitial infiltrate highly suggestive of COVID-19 pneumonia. D-dimer is not available at this time. The blood sugar is elevated up to 407. There is no history of any fever, rigor or chills at this time. PAST MEDICAL HISTORY: History of diabetes mellitus, hypertension, history of occasional low back pain. HOME MEDICATIONS: Insulin Lantus 16 units subcutaneously at bedtime. ALLERGIES: NONE. FAMILY HISTORY: COPD, hepatitis. SOCIAL HISTORY: No history of smoking. No history of alcohol intake. REVIEW OF SYSTEMS: ENT: No diminished hearing. No diminished vision. CARDIOVASCULAR SYSTEM: No angina, palpitations. RESPIRATORY SYSTEM: As mentioned earlier. GI: As mentioned earlier. : No dysuria. NERVOUS SYSTEM: No numbness, weakness. ALLERGY/IMMUNOLOGY: No asthma or hay fever. MUSCULOSKELETAL: As mentioned earlier. HEMATOLOGY/ONCOLOGY: No history of anemia. ENDOCRINE: As mentioned earlier. CONSTITUTIONAL: As mentioned earlier. DERMATOLOGY: Negative. RHEUMATOLOGY: Negative. PSYCHIATRY: As mentioned earlier. PHYSICAL EXAMINATION: Alert and oriented x3. Pulse 89, blood pressure 101/59, respirations 16, temperature 98 degrees, pulse ox 97% on 6 L. HEENT: Conjunctivae normal. Oral mucosa moist. NECK: No jugular venous distention. CARDIOVASCULAR: S1, S2 muffled. RESPIRATION: Breath sounds diminished at the bases. A few scattered rhonchi and crackles. ABDOMEN: Soft, nontender. LEGS: No edema. No swelling. NERVOUS SYSTEM: No focal deficit. LYMPHATICS: No lymph node palpable in neck, axillae or groin. SKIN: No ulcer, rash, bleeding. LAB STUDIES: CBC showed lymphocytes 0.7. Sodium 132. Other labs are noted. ASSESSMENT: 1. Acute COVID-19 infection with acute COVID-19 bilateral interstitial pneumonia with acute hypoxic respiratory failure. 2. Diabetes mellitus, type 2, uncontrolled. Rule out diabetic ketoacidosis. 3. Elevated inflammatory markers of COVID-19. 4. Elevated plasma lactic acid, possibly secondary to dehydration. 5. Lymphopenia. 6. Diabetes mellitus, type 2 history. 7. Hypertension. 8. History of low back pain. 9. FULL CODE. RECOMMENDATIONS AND DISCUSSION: In this 55-year-old gentleman who presented with multiple complex medical issues, we will monitor the patient closely. I recommend D-dimer STAT, and if the D-dimer is positive, I would recommend CT angio of the chest and ultrasound of the leg also. As far as the diabetes is concerned, the concern is impending diabetic ketoacidosis. I would recommend a serum ketone STAT and if positive follow DKA protocol. Prognosis is guarded because of multiple complex medical issues. Recommend continuing the rest of the COVID protocol and steroids and consult also Dr. Ruggiero, Infectious Disease. Prognosis guarded. Further recommendations to follow. The patient is probably out of the window for remdesivir per the current guidelines. A copy of this dictation is being forwarded to Dr. Lynette Cooper, who is the primary physician. MMODL / IJN: [id number] / MTDEli
--- NOTE | 2021-04-12 15:20 | US ---
EXAMINATION TYPE: US venous doppler duplex LE DATE OF EXAM: 04/12/2021 3:12 PM COMPARISON: NONE CLINICAL HISTORY: elevated d-dimer. covid +. Swelling. SIDE PERFORMED: Bilateral TECHNIQUE: The lower extremity deep venous system is examined utilizing real time linear array sonog miller with graded compression, doppler sonography and color-flow sonography. VESSELS IMAGED: Common Femoral Vein Deep Femoral Vein Greater Saphenous Vein * Femoral Vein Popliteal Vein Small Saphenous Vein * Proximal Calf Veins (* superficial vessels) Right Leg: Negative for DVT Left Leg: Negative for DVT Grayscale, color doppler, spectral doppler imaging performed of the deep veins of the bilateral lower extremities. There is normal flow, compressibility, vascular waveforms. IMPRESSION: No ultrasound evidence for acute DVT in either lower extremity.
--- NOTE | 2021-04-12 15:50 | CT ---
EXAMINATION TYPE: CT chest angio for PE DATE OF EXAM: 04/12/2021 COMPARISON: Chest x-ray from earlier today HISTORY: Elevated d-dimer, covid. Shortness of breath. CT DLP: 561.5 mGycm. Automated Exposure Control for Dose Reduction was Utilized. CONTRAST: CTA scan of the thorax is performed with IV Contrast, patient injected with 100 mL of Isovue 370, pul monary embolism protocol. MIP Images are created on CT scanner and reviewed. FINDINGS: LUNGS: Bilateral multifocal groundglass opacities with areas of organizing consolidation that are gre atest in the periphery and greatest in the lower lungs corresponding to chest x-ray earlier today. No pleural effusion or pneumothorax is seen bilaterally. MEDIASTINUM: There is suboptimal bolus with most dense contrast in SVC. There is better contrast opac ification of the thoracic aorta without aneurysm or dissection. No large central saddle pulmonary em bolism. Cannot exclude peripheral pulmonary emboli on this study. There are prominent bilateral hilar lymph nodes presumed reactive. Prominent subcarinal lymph node axial image 74. No cardiomegaly or pericardial effusion is seen. OTHER: Contracted gallbladder. IMPRESSION: Suboptimal study without central saddle pulmonary embolism. Bilateral multifocal groundgl ass opacities and organizing consolidation are greatest in the periphery and in the lower lungs consi stent with covid-19 infection are redemonstrated.
[2021-04-12] MEDS: INSULIN ASPART (NovoLOG) 100 UNIT/ML VIAL SQ SCH ×2 (17:13→22:10)
[2021-04-12 17:18] LABS: Glucose,Whole Blood 395 mg/dL (75-99)
[2021-04-12 20:53] LABS: Glucose,Whole Blood 256 mg/dL (75-99)
[2021-04-12] MEDS ORDERED: INSULIN DETEMIR (LEVEMIR) 100 UNIT/ML SYR SQ SCH (21:00)
--- NOTE | 2021-04-12 22:06 | P.CONS ---
History of Present Illness - Reason for Consult Consult date: 04/12/21 covid 19 pneumonia Requesting physician: Rocky Dixon - Chief Complaint shortness of breath x days - History of Present Illness History of present illness : Patient is a 55-year-old -[place] male with a past medical history negative for diabetes mellitus hypertension COVID unvaccinated presenting to the ER early this morning for evaluation of worsening shortness of breath and hypoxemia. The patient's symptoms started about 10 days ago the patient lost of taste and smell subsequent started not feeling well did have generalized body aches and fever patient on arrival to the did have low- grade fever of 99.2 degrees for right he was hypoxic with O2 sats of 88% on room air patient did have a normal white count with lymphopenia D-dimer was elevated BUN/creatinine was normal liver enzymes are normal urine is negative. Did have positive COVID test chest x-ray new bilateral peripheral interstitial pneumonia compared to old exam patient did have a CT angiogram of the chest suboptimal study without central pulmonary [place] bilateral multifocal groundglass opa [place] patient has been admitted to the hospital infectious disease was consulted for further management Review of system: CONSTITUTIONAL: Positive for weakness along with the fever. EYES: No complaint. ENT: As per history of present illness. RESPIRATORY: As per history of present illness. CARDIOVASCULAR: No complaint. GENITOURINARY: No complaint. GASTROINTESTINAL: As per history of present illness. MUSCULOSKELETAL: No complaint. INTEGUMENTARY: No complaint. PSYCHOLOGIC: No complaint. ENDOCRINE: No complaint. NEUROLOGIC: No complaint. Past medical history : Reviewed, documented below Past surgical history : Reviewed, documented below Social history: Reviewed, documented below Medications: Reviewed, as documented below EXAMINATION: Vital sigans= Reviewed and documented below GENERAL DESCRIPTION: Middle-aged male lying in bed, no distress. No tachypnea or accessory muscle of respiration use. HEENT: Shows Pallor , no scleral icterus. Oral mucous membrane is dry. NECK: Trachea central, no thyromegaly. LUNGS: Unlabored breathing. Coarse breath sounds bilaterally. No wheeze or crackle. HEART: S1, S2, regular rate and rhythm. ABDOMEN: Soft, no tenderness , guarding or rigidity EXTREMITIES: No edema of feet. SKIN: No rash, no masses palpable. NEUROLOGICAL: The patient is awake, alert, oriented x3, mood and affect normal. LABS AND RADIOLOGY: Reviewed results see below Assessment : Patient presented to hospital with acute respiratory failure secondary to COVID-19 pneumonia in this patient symptom has been going on for about 10 days and is currently out of the therapeutic window for remdesivir per [facility] policy and there is no evidence of any secondary bacterial pneumonia Plan: 1-patient to continue with the dexamethasone, and Lovenox zinc and ascorbic acid 2-no need for systemic antibiotic therapy 3-droplet isolation and respiratory support We will follow on clinical condition and cultures to further adjust medication if needed Thank you for this consultation we will follow the patient along with you Past Medical History Past Medical History: Diabetes Mellitus, Hypertension Additional Past Medical History / Comment(s): IDDM type II, occasional lower back pain History of Any Multi-Drug Resistant Organisms: None Reported Past Surgical History: No Surgical Hx Reported Additional Past Surgical History / Comment(s): Pt states he has never had surgery Past Anesthesia/Blood Transfusion Reactions: Unable to Obtain Additional Past Anesthesia/Blood Transfusion Reaction / Comm: Pt has never had surgery. Smoking Status: Never smoker - Past Family History Father Family Medical History: COPD Mother Family Medical History: Liver Disease Additional Family Medical History / Comment(s): hepatitis Medications and Allergies Home Medications Medication Instructions Recorded Confirmed Type Insulin Glargine,Hum.rec.anlog 16 unit SQ HS 01/26/21 04/12/21 History [Lantus Solostar Pen] Allergies Allergy/AdvReac Type Severity Reaction Status Date / Time No Known Allergies Allergy Verified 04/12/21 07:26 Physical Exam Vitals: Vital Signs Temp Pulse Pulse Resp BP BP Pulse Ox 04/12/21 16:00 17 04/12/21 13:13 98.2 F 89 18 117/72 96 04/12/21 08:02 98 F 89 16 101/59 94 L 04/12/21 06:44 87 28 H 96/60 95 04/12/21 05:41 32 H 04/12/21 05:17 99.2 F 97 04/12/21 05:03 114 H 26 H 131/75 88 L Intake and Output 04/12/21 04/12/21 04/12/21 06:59 14:59 22:59 Other: Weight 95.254 kg 95.254 kg Results CBC & Chem 7: 04/12/21 05:17 04/12/21 06:20 Labs: Abnormal Lab Results - Last 24 Hours (Table) 04/12/21 04/12/21 04/12/21 Range/Units 05:17 05:17 06:05 Neutrophils # 9.2 H (1.3-7.7) k/uL Lymphocytes # 0.7 L (1.0-4.8) k/uL D-Dimer (<0.60) mg/L FEU Sodium (137-145) mmol/L Carbon Dioxide (22-30) mmol/L Glucose (74-99) mg/dL POC Glucose (mg/dL) (75-99) mg/dL Plasma Lactic Acid Gerry 2.3 H* (0.7-2.0) mmol/L Calcium (8.4-10.2) mg/dL Ferritin (22.0-322.0) ng/mL Lactate Dehydrogenase (313-618) U/L C-Reactive Protein (<1.0) mg/dL Albumin (3.5-5.0) g/dL Ur Specific [place] (1.001-1.035) Urine Protein (Negative) Urine Glucose (UA) (Negative) Urine Ketones (Negative) Urine Blood (Negative) Urine Mucus (None) /hpf Coronavirus (PCR) Detected A (Not Detectd) 04/12/21 04/12/21 04/12/21 Range/Units 06:20 12:23 12:59 Neutrophils # (1.3-7.7) k/uL Lymphocytes # (1.0-4.8) k/uL D-Dimer 1.14 H (<0.60) mg/L FEU Sodium 132 L (137-145) mmol/L Carbon Dioxide 15 L (22-30) mmol/L Glucose 258 H (74-99) mg/dL POC Glucose (mg/dL) 407 H (75-99) mg/dL Plasma Lactic Acid Gerry (0.7-2.0) mmol/L Calcium 7.8 L (8.4-10.2) mg/dL Ferritin 2354.0 H (22.0-322.0) ng/mL Lactate Dehydrogenase 1701 H (313-618) U/L C-Reactive Protein 22.7 H (<1.0) mg/dL Albumin 3.2 L (3.5-5.0) g/dL Ur Specific [place] (1.001-1.035) Urine Protein (Negative) Urine Glucose (UA) (Negative) Urine Ketones (Negative) Urine Blood (Negative) Urine Mucus (None) /hpf Coronavirus (PCR) (Not Detectd) 04/12/21 Range/Units 13:52 Neutrophils # (1.3-7.7) k/uL Lymphocytes # (1.0-4.8) k/uL D-Dimer (<0.60) mg/L FEU Sodium (137-145) mmol/L Carbon Dioxide (22-30) mmol/L Glucose (74-99) mg/dL POC Glucose (mg/dL) (75-99) mg/dL Plasma Lactic Acid Gerry (0.7-2.0) mmol/L Calcium (8.4-10.2) mg/dL Ferritin (22.0-322.0) ng/mL Lactate Dehydrogenase (313-618) U/L C-Reactive Protein (<1.0) mg/dL Albumin (3.5-5.0) g/dL Ur Specific [place] 1.037 H (1.001-1.035) Urine Protein 2+ H (Negative) Urine Glucose (UA) 4+ H (Negative) Urine Ketones 1+ H (Negative) Urine Blood Moderate H (Negative) Urine Mucus Rare H (None) /hpf Coronavirus (PCR) (Not Detectd)
[2021-04-13 05:38] LABS: Glucose,Whole Blood 190 mg/dL (75-99)
[2021-04-13 07:12] LABS: Glucose,Whole Blood 211 mg/dL (75-99)
[2021-04-13] MEDS: INSULIN ASPART (NovoLOG) 100 UNIT/ML VIAL SQ SCH ×4 (07:31→22:36)
[2021-04-13] MEDS: ZINC SULFATE 220 MG CAP PO SCH (07:31)
[2021-04-13] MEDS: ENOXAPARIN 40 MG/0.4 ML SYRINGE SQ SCH (07:31)
[2021-04-13] MEDS: ASCORBIC ACID 500 MG TAB PO SCH ×2 (07:31→22:36)
[2021-04-13] MEDS: CHOLECALCIFEROL 25 MCG (1000 IU) TABLET PO SCH (07:31)
[2021-04-13] MEDS: DEXAMETHASONE SOD PHOSPHATE 10 MG/ML 1 ML VIAL IVP SCH (07:31)
[2021-04-13] MEDS: SODIUM CHLORIDE 0.9% 1,000 ML IV SCH ×3 (07:31→15:33)
[2021-04-13 09:00] LABS: HCT 42.6 % (39.6-50.0); HGB 13.7 g/dL (13.0-17.0); MCH 27.6 pg (27.0-32.0); MCHC 32.2 g/dL (32.0-37.0); MCV 85.9 fL (80.0-97.0); Mean Platelet Volume 10.9 fL (9.5-12.2); Platelet Count 249 X 10*3/uL (140-440); RBC 4.96 X 10*6/uL (4.40-5.60); RDW 13.7 % (11.5-14.5); WBC 14.42 X 10*3/uL (4.50-10.00)
[2021-04-13 09:28] LABS: Albumin/Globulin Ratio 0.97 (1.60-3.17); Anion Gap 12.8 mmol/L (10.00-18.00); BUN/Creat Ratio 19.33 Ratio (12.00-20.00); Blood Urea Nitrogen 17.4 mg/dL (9.0-27.0); Calcium 7.2 mg/dL (8.7-10.3); Carbon Dioxide 18.2 mmol/L (20.0-27.5); Globulin 3.1 g/dL (1.6-3.3); Non-African American GFR(CKD) 95.8 (60.0-200.0); Potassium 3.9 mmol/L (3.5-5.5); Total Bilirubin 0.2 mg/dL (0.30-1.20); Total Protein 6.1 g/dL (6.2-8.2)
--- NOTE | 2021-04-13 12:02 | P.PN ---
Subjective Progress Note Date: 04/13/21 Principal diagnosis: CoVID pneumonia This is a pleasant 55-year-old -Nepalese male with past medical history hypertension, diabetes mellitus type 2, nonsmoker who is not vaccinated against COVID-19 came into the emergency department on 04/12/2021 with complaints of worsening dyspnea and hypoxia. He states his had symptoms of not feeling well, body aches, fever, loss of taste and smell for around 10 days. He tested positive for COVID-19 via PCR test in the emergency department. His pulse ox was 80% on room air, he is currently requiring 6 L of oxygen, and his pulse ox is 94%, hemodynamically stable. He does not appear to be in any acute distress, his chest x-ray in the emergency department showed new bilateral peripheral interstitial pneumonia. His lab work showed white blood cell count of 10.3, hemoglobin 15.7, his lymphocyte count 0.7, d-dimer is 1.14, sodium is 132, potassium is 3.9, chloride is 106, CO2 is 15, BUN is 18, creatinine is 1.2, glucose level was 258, ferrritin level pending,LDH 1701, troponin of 0.025, CRP 22.7, BNP 48. He is outside the window for Remdesivir, and he is not a candidate for monoclonal antibodies. He is started on Decadron, 6 mg daily, he is on Lovenox 40 mg daily, he is on multivitamins, he was given IV fluids at a rate of 1:30 ML per hour, he is tolerating oral intake, no nausea vomiting diarrhea. The patient is seen today 04/13/2021 in follow-up on the regular medical floor. He is currently sitting up in bed. Awake and alert in no acute distress. He states he is breathing a bit easier today compared to yesterday. CT angiogram ruled out pulmonary embolism. Dopplers of the lower extremity were negative for DVT. Maintaining O2 saturations in the low 90s on 5 L high flow nasal cannula. He is afebrile. Hemodynamically stable. He is continued on Decadron, Lovenox, vitamin supplements. White count 14.4. Hemoglobin 13.7. Sodium 140. Potassium 3.9. Bicarb 18. Creatinine 0.9. Glucose 195. Objective - Vital Signs Vital signs: Vital Signs Temp 98.5 F 04/13/21 05:54 Pulse 81 04/13/21 05:54 Resp 15 04/13/21 07:41 BP 118/74 04/13/21 05:54 Pulse Ox 93 L 04/13/21 05:54 Intake & Output 04/12/21 04/13/21 04/13/21 18:59 06:59 18:59 Intake Total 236 Balance 236 Weight 95.254 kg Intake: Oral 236 Other: # Voids 3 - Exam GENERAL EXAM: Alert, very pleasant, 55-year-old male patient, currently on 5 L of oxygen the pulse ox of 93%, comfortable in no apparent distress. HEAD: Normocephalic/atraumatic. EYES: Normal reaction of pupils, equal size. Conjunctiva pink, sclera white. NOSE: Clear with pink turbinates. THROAT: No erythema or exudates. NECK: No masses, no JVD, no thyroid enlargement, no adenopathy. CHEST: No chest wall deformity. Symmetrical expansion. LUNGS: Equal air entry with basilar crackles CVS: Regular rate and rhythm, normal S1 and S2, no gallops, no murmurs, no rubs ABDOMEN: Soft, nontender. No hepatosplenomegaly, normal bowel sounds, no guarding or rigidity. EXTREMITIES: No clubbing, no edema, no cyanosis, 2+ pulses and upper and lower extremities. MUSCULOSKELETAL: Muscle strength and tone normal. SPINE: No scoliosis or deformity SKIN: No rashes CENTRAL NERVOUS SYSTEM: No focal deficits, tone is normal in all 4 extremities. PSYCHIATRIC: Alert and oriented -3. Appropriate affect. Intact judgment and insight. - Labs CBC & Chem 7: 04/13/21 06:24 04/13/21 06:24 Labs: Abnormal Lab Results - Last 24 Hours (Table) 04/12/21 04/12/21 04/12/21 Range/Units 06:20 12:23 12:59 WBC (4.50-10.00) X 10*3/uL D-Dimer 1.14 H (<0.60) mg/L FEU Carbon Dioxide (20.0-27.5) mmol/L Glucose (70-110) mg/dL POC Glucose (mg/dL) 407 H (75-99) mg/dL Calcium (8.7-10.3) mg/dL Ferritin 2354.0 H (22.0-322.0) ng/mL Total Bilirubin (0.30-1.20) mg/dL Total Protein (6.2-8.2) g/dL Albumin (3.8-4.9) g/dL Albumin/Globulin Ratio (1.60-3.17) g/dL Ur Specific [place] (1.001-1.035) Urine Protein (Negative) Urine Glucose (UA) (Negative) Urine Ketones (Negative) Urine Blood (Negative) Urine Mucus (None) /hpf 04/12/21 04/12/21 04/12/21 Range/Units 13:52 17:00 20:52 WBC (4.50-10.00) X 10*3/uL D-Dimer (<0.60) mg/L FEU Carbon Dioxide (20.0-27.5) mmol/L Glucose (70-110) mg/dL POC Glucose (mg/dL) 395 H 256 H (75-99) mg/dL Calcium (8.7-10.3) mg/dL Ferritin (22.0-322.0) ng/mL Total Bilirubin (0.30-1.20) mg/dL Total Protein (6.2-8.2) g/dL Albumin (3.8-4.9) g/dL Albumin/Globulin Ratio (1.60-3.17) g/dL Ur Specific [place] 1.037 H (1.001-1.035) Urine Protein 2+ H (Negative) Urine Glucose (UA) 4+ H (Negative) Urine Ketones 1+ H (Negative) Urine Blood Moderate H (Negative) Urine Mucus Rare H (None) /hpf 04/13/21 04/13/21 04/13/21 Range/Units 05:37 06:24 06:24 WBC 14.42 H (4.50-10.00) X 10*3/uL D-Dimer (<0.60) mg/L FEU Carbon Dioxide 18.2 L (20.0-27.5) mmol/L Glucose 195 H (70-110) mg/dL POC Glucose (mg/dL) 190 H (75-99) mg/dL Calcium 7.2 L (8.7-10.3) mg/dL Ferritin (22.0-322.0) ng/mL Total Bilirubin 0.20 L (0.30-1.20) mg/dL Total Protein 6.1 L (6.2-8.2) g/dL Albumin 3.0 L (3.8-4.9) g/dL Albumin/Globulin Ratio 0.97 L (1.60-3.17) g/dL Ur Specific [place] (1.001-1.035) Urine Protein (Negative) Urine Glucose (UA) (Negative) Urine Ketones (Negative) Urine Blood (Negative) Urine Mucus (None) /hpf 04/13/21 Range/Units 07:12 WBC (4.50-10.00) X 10*3/uL D-Dimer (<0.60) mg/L FEU Carbon Dioxide (20.0-27.5) mmol/L Glucose (70-110) mg/dL POC Glucose (mg/dL) 211 H (75-99) mg/dL Calcium (8.7-10.3) mg/dL Ferritin (22.0-322.0) ng/mL Total Bilirubin (0.30-1.20) mg/dL Total Protein (6.2-8.2) g/dL Albumin (3.8-4.9) g/dL Albumin/Globulin Ratio (1.60-3.17) g/dL Ur Specific [place] (1.001-1.035) Urine Protein (Negative) Urine Glucose (UA) (Negative) Urine Ketones (Negative) Urine Blood (Negative) Urine Mucus (None) /hpf Assessment and Plan Assessment: 1 Acute hypoxic respiratory failure related to acute COVID-19 pneumonia, patient coming to the emergency department on 04/12/2021 with 10 day symptoms of COVID-19 infection. Non-vaccinated against COVID-19. Tested positive today on 04/12/2021. Outside the window for Remdesivir, has been started on Decadron, and prophylactic anticoagulation in addition to multivitamins 2 Elevated d-dimer, will obtain lower extremity Dopplers and CTA chest to rule out possibility of DVT and pulmonary embolism 3 Elevated inflammatory markers related to the above 4 Mild hyponatremia related to poor oral intake and dehydration, patient is receiving gentle IV hydration 5 Diabetes mellitus type 2 and steroid-induced hyperglycemia 6 Nonsmoker Plan: The patient was seen and evaluated Doing a bit better today compared to yesterday Currently on 5 L high flow nasal cannula Titrate down the FiO2 as tolerated Continue Decadron, Lovenox, vitamin supplements Follow-up chest x-ray and labs in a.m. We will continue to follow I, the cosigning physician, performed a history & physical examination of the patient. Lungs sounds lateral scattered crackles. Maintaining good O2 saturations in the 90s on 5 liters per minute per nasal cannula. I discussed the assessment and plan of care with my nurse practitioner, Rebecca Maldonado. I attest to the above note as dictated by her.
[2021-04-13 12:07] LABS: Basophils # (A) 0.01 X 10*3/uL (0.00-0.10); Basophils % (A) 0.1 %; Eosinophils # (A) 0 X 10*3/uL (0.04-0.35); Eosinophils % (A) 0 %; Lymphocytes # (A) 0.91 X 10*3/uL (0.90-5.00); Lymphocytes % (A) 6.3 %; Monocytes # (A) 0.58 X 10*3/uL (0.20-1.00); Neutrophils # (A) 12.82 X 10*3/uL (1.80-7.70); Neutrophils % (A) 88.9 %
[2021-04-13 12:27] LABS: Glucose,Whole Blood 236 mg/dL (75-99)
[2021-04-13 13:26] VITALS: BMI 27.7
[2021-04-13 16:47] LABS: Glucose,Whole Blood 354 mg/dL (75-99)
[2021-04-13 20:09] LABS: Glucose,Whole Blood 310 mg/dL (75-99)
--- NOTE | 2021-04-13 22:26 | P.PN ---
Subjective Progress Note Date: 04/13/21 04/13/2021 Patient evaluated today resting in bed, he was hoping to be discharged however is still requiring 4 to 5 L of oxygen via nasal cannula. Patient was able to get up into the shower today. Labs today show a white count of 14.42, neutrophils 12.82, glucose increased in the 300s, procalcitonin 0.29. Levemir was increased to 22 units today, and novolog adjusted. Pt is afebrile, heart rate 81, blood pressure 111/50, 92% on 5L [place]. He is being followed closely by pulm and ID services. ROS Constitutional: Denied any fatigue denied any fever. Cardio vascular: denied any chest pain, palpitations Gastrointestinal denied any nausea vomiting Pulmonary: Denied any cough, reports some shortness of breath, more exertional Neurologic denied any new focal deficits All inpatient medications were reviewed and appropriate changes in these medications as dictated in the interval history and assessment and plan. PHYSICAL EXAMINATION: GENERAL: The patient is alert and oriented x3, not in any acute distress. Well developed, well nourished. HEENT: Pupils are round and equally reacting to light. EOMI. No scleral icterus. No conjunctival pallor. Normocephalic, atraumatic. No pharyngeal erythema. No thyromegaly. CARDIOVASCULAR: S1 and S2 present. No murmurs, rubs, or gallops. PULMONARY: Chest is clear to auscultation, no wheezing or crackles. ABDOMEN: Soft, nontender, nondistended, normoactive bowel sounds. No palpable organomegaly. MUSCULOSKELETAL: No joint swelling or deformity. EXTREMITIES: No cyanosis, clubbing, or pedal edema. NEUROLOGICAL: Gross neurological examination did not reveal any focal deficits. SKIN: No rashes. Assessment and Plan Assessment Acute hypoxic respiratory failure secondary to acute covid 19 pneumonia. Currently on 5L NC. Leukocytosis secondary to above Elevated DDimer, no evidence for pulmonary embolism or DVT Diabetes mellitus type 2 with hyperglycemia due to steroids Elevated inflammatory markers secondary to covid 19 infection History of hypertension, stable GI Prophylaxis: Pepcid DVT Prophylaxis: Lovenox Full Code Plan Continue IV decadron, zinc, vitamins Repeat labs in AM Repeat chest xray in AM Wean oxygen as tolerated Objective - Vital Signs Vital signs: Vital Signs Temp 98.5 F 04/13/21 05:54 Pulse 81 04/13/21 05:54 Resp 15 04/13/21 07:41 BP 118/74 04/13/21 05:54 Pulse Ox 93 L 04/13/21 05:54 Intake & Output 04/12/21 04/13/21 04/13/21 18:59 06:59 18:59 Intake Total 236 Balance 236 Weight 95.254 kg Intake: Oral 236 Other: # Voids 3 - Labs CBC & Chem 7: 04/13/21 06:24 04/13/21 06:24 Labs: Abnormal Lab Results - Last 24 Hours (Table) 04/12/21 04/12/21 04/12/21 Range/Units 06:20 12:23 12:59 D-Dimer 1.14 H (<0.60) mg/L FEU POC Glucose (mg/dL) 407 H (75-99) mg/dL Ferritin 2354.0 H (22.0-322.0) ng/mL Ur Specific [place] (1.001-1.035) Urine Protein (Negative) Urine Glucose (UA) (Negative) Urine Ketones (Negative) Urine Blood (Negative) Urine Mucus (None) /hpf 04/12/21 04/12/21 04/12/21 Range/Units 13:52 17:00 20:52 D-Dimer (<0.60) mg/L FEU POC Glucose (mg/dL) 395 H 256 H (75-99) mg/dL Ferritin (22.0-322.0) ng/mL Ur Specific [place] 1.037 H (1.001-1.035) Urine Protein 2+ H (Negative) Urine Glucose (UA) 4+ H (Negative) Urine Ketones 1+ H (Negative) Urine Blood Moderate H (Negative) Urine Mucus Rare H (None) /hpf 04/13/21 04/13/21 Range/Units 05:37 07:12 D-Dimer (<0.60) mg/L FEU POC Glucose (mg/dL) 190 H 211 H (75-99) mg/dL Ferritin (22.0-322.0) ng/mL Ur Specific [place] (1.001-1.035) Urine Protein (Negative) Urine Glucose (UA) (Negative) Urine Ketones (Negative) Urine Blood (Negative) Urine Mucus (None) /hpf
[2021-04-13] MEDS: INSULIN DETEMIR (LEVEMIR) 100 UNIT/ML SYR SQ SCH (22:37)
[2021-04-14 07:17] LABS: Glucose,Whole Blood 139 mg/dL (75-99)
--- NOTE | 2021-04-14 08:26 | XR ---
EXAMINATION TYPE: XR chest 1V portable DATE OF EXAM: 04/14/2021 COMPARISON: Chest x-ray 04/12/2021 HISTORY: Covid pneumonia TECHNIQUE: Single frontal view of the chest is obtained. FINDINGS: Bilateral airspace disease is present predominantly in a peripheral distribution. No evide nt pneumothorax or pleural effusion. Cardiac mediastinal silhouette is stable. IMPRESSION: Findings consistent with patient's history Covid pneumonia
[2021-04-14] MEDS: ENOXAPARIN 40 MG/0.4 ML SYRINGE SQ SCH (08:51)
[2021-04-14] MEDS: INSULIN ASPART (NovoLOG) 100 UNIT/ML VIAL SQ SCH ×7 (08:51→21:39)
[2021-04-14] MEDS: ZINC SULFATE 220 MG CAP PO SCH (08:52)
[2021-04-14] MEDS: ASCORBIC ACID 500 MG TAB PO SCH ×2 (08:52→21:39)
[2021-04-14] MEDS: CHOLECALCIFEROL 25 MCG (1000 IU) TABLET PO SCH (08:52)
[2021-04-14] MEDS: FAMOTIDINE 20 MG TAB PO SCH (08:52)
[2021-04-14] MEDS: DEXAMETHASONE SOD PHOSPHATE 10 MG/ML 1 ML VIAL IVP SCH (10:02)
[2021-04-14 11:14] LABS: Basophils # (A) 0.04 X 10*3/uL (0.00-0.10); Basophils % (A) 0.3 %; Eosinophils # (A) 0 X 10*3/uL (0.04-0.35); Eosinophils % (A) 0 %; HGB 15.1 g/dL (13.0-17.0); Lymphocytes % (A) 8.3 %; MCH 27.8 pg (27.0-32.0); MCHC 32.1 g/dL (32.0-37.0); MCV 86.6 fL (80.0-97.0); Mean Platelet Volume 11.1 fL (9.5-12.2); Monocytes # (A) 0.61 X 10*3/uL (0.20-1.00); Monocytes % (A) 3.9 %; Neutrophils % (A) 86.4 %; Platelet Count 349 X 10*3/uL (140-440); RBC 5.43 X 10*6/uL (4.40-5.60); WBC 15.73 X 10*3/uL (4.50-10.00)
[2021-04-14 11:58] LABS: Glucose,Whole Blood 159 mg/dL (75-99)
--- NOTE | 2021-04-14 14:38 | P.PN ---
Subjective Progress Note Date: 04/14/21 04/13/2021 Patient evaluated today resting in bed, he was hoping to be discharged however is still requiring 4 to 5 L of oxygen via nasal cannula. Patient was able to get up into the shower today. Labs today show a white count of 14.42, neutrophils 12.82, glucose increased in the 300s, procalcitonin 0.29. Levemir was increased to 22 units today, and novolog adjusted. Pt is afebrile, heart rate 81, blood pressure 111/50, 92% on 5L NC. He is being followed closely by pulm and ID services. 04/14/2021 Patient is resting in the bed today. He did state that during his shower yesterday he became quite short of breath. He is dyspneic even at rest today. He states that this is worse than yesterday. He is 97% on 5 L of cannula. we can wean this as tolerated. He is afebrile, blood pressure 126/85 and is 85 sinus rhythm heart rate. Labs today show white count of 15.73, d-dimer 1.21, glucose in the 150s, LDH 562 and CRP 4.0. Inflammatory markers have much improved since admission. Repeat chest x-ray shows findings consistent with patient's history of Covid Pneumonia. ROS Constitutional: Denied any fatigue denied any fever. Cardio vascular: denied any chest pain, palpitations Gastrointestinal denied any nausea vomiting Pulmonary: Denied any cough, reports some dyspnea at rest and with exertion Neurologic denied any new focal deficits All inpatient medications were reviewed and appropriate changes in these medications as dictated in the interval history and assessment and plan. PHYSICAL EXAMINATION: GENERAL: The patient is alert and oriented x3, not in any acute distress. Well d eveloped, well nourished. HEENT: Pupils are round and equally reacting to light. EOMI. No scleral icterus. No conjunctival pallor. Normocephalic, atraumatic. No pharyngeal erythema. No thyromegaly. CARDIOVASCULAR: S1 and S2 present. No murmurs, rubs, or gallops. PULMONARY: Chest is clear to auscultation, no wheezing or crackles. ABDOMEN: Soft, nontender, nondistended, normoactive bowel sounds. No palpable organomegaly. MUSCULOSKELETAL: No joint swelling or deformity. EXTREMITIES: No cyanosis, clubbing, or pedal edema. NEUROLOGICAL: Gross neurological examination did not reveal any focal deficits. SKIN: No rashes. Assessment and Plan Assessment Acute hypoxic respiratory failure secondary to acute covid 19 pneumonia. Currently on 5L NC. Leukocytosis secondary to above Elevated DDimer, no evidence for pulmonary embolism or DVT Diabetes mellitus type 2 with hyperglycemia due to steroids Elevated inflammatory markers secondary to covid 19 infection, improving History of hypertension, stable GI Prophylaxis: Pepcid DVT Prophylaxis: Lovenox Full Code Plan Continue IV decadron, zinc, vitamins Repeat labs in AM Wean oxygen as tolerated Possibly home tomorrow if pulmonary services clear and oxygen is able to be weaned Encourage patient to sit up in the chair Objective - Vital Signs Vital signs: Vital Signs Temp 98.7 F 04/14/21 14:00 Pulse 85 04/14/21 14:00 Resp 17 04/14/21 14:00 BP 126/85 04/14/21 05:47 Pulse Ox 97 04/14/21 14:00 Intake & Output 04/13/21 04/14/21 04/14/21 18:59 06:59 18:59 Intake Total 600 Balance 600 Weight 95.254 kg Intake: Oral 600 Other: # Voids 4 - Labs CBC & Chem 7: 04/14/21 05:48 04/13/21 06:24 Labs: Abnormal Lab Results - Last 24 Hours (Table) 04/13/21 04/13/21 04/13/21 Range/Units 06:24 16:46 20:07 WBC (4.50-10.00) X 10*3/uL Immature Gran # (0.00-0.04) X 10*3/uL Neutrophils # (1.80-7.70) X 10*3/uL Eosinophils # (0.04-0.35) X 10*3/uL D-Dimer (<0.60) mg/L FEU POC Glucose (mg/dL) 354 H 310 H (75-99) mg/dL Lactate Dehydrogenase (120-246) U/L C-Reactive Protein (0.00-0.80) mg/dL Procalcitonin 0.29 H (0.02-0.09) ng/mL 04/14/21 04/14/21 04/14/21 Range/Units 05:48 05:48 05:48 WBC 15.73 H (4.50-10.00) X 10*3/uL Immature Gran # 0.18 H (0.00-0.04) X 10*3/uL Neutrophils # 13.60 H (1.80-7.70) X 10*3/uL Eosinophils # 0 L (0.04-0.35) X 10*3/uL D-Dimer 1.21 H (<0.60) mg/L FEU POC Glucose (mg/dL) (75-99) mg/dL Lactate Dehydrogenase 562 H (120-246) U/L C-Reactive Protein 4.00 H (0.00-0.80) mg/dL Procalcitonin (0.02-0.09) ng/mL 04/14/21 04/14/21 Range/Units 07:16 11:57 WBC (4.50-10.00) X 10*3/uL Immature Gran # (0.00-0.04) X 10*3/uL Neutrophils # (1.80-7.70) X 10*3/uL Eosinophils # (0.04-0.35) X 10*3/uL D-Dimer (<0.60) mg/L FEU POC Glucose (mg/dL) 139 H 159 H (75-99) mg/dL Lactate Dehydrogenase (120-246) U/L C-Reactive Protein (0.00-0.80) mg/dL Procalcitonin (0.02-0.09) ng/mL
[2021-04-14 16:40] LABS: Glucose,Whole Blood 263 mg/dL (75-99)
--- NOTE | 2021-04-14 18:25 | P.PN ---
Subjective Progress Note Date: 04/14/21 Principal diagnosis: Acute hypoxic respiratory failure secondary to COVID-19 pneumonia This is a pleasant 55-year-old -[place]yp[place] male with past medical history hypertension, diabetes mellitus type 2, nonsmoker who is not vaccinated against COVID-19 came into the emergency department on 04/12/2021 with complaints of worsening dyspnea and hypoxia. He states his had symptoms of not feeling well, body aches, fever, loss of taste and smell for around 10 days. He tested po sitive for COVID-19 via PCR test in the emergency department. His pulse ox was 80% on room air, he is currently requiring 6 L of oxygen, and his pulse ox is 94%, hemodynamically stable. He does not appear to be in any acute distress, his chest x-ray in the emergency department showed new bilateral peripheral interstitial pneumonia. His lab work showed white blood cell count of 10.3, hemoglobin 15.7, his lymphocyte count 0.7, d-dimer is 1.14, sodium is 132, potassium is 3.9, chloride is 106, CO2 is 15, BUN is 18, creatinine is 1.2, glucose level was 258, ferrritin level pending,LDH 1701, troponin of 0.025, CRP 22.7, BNP 48. He is outside the window for Remdesivir, and he is not a candidat e for monoclonal antibodies. He is started on Decadron, 6 mg daily, he is on Lovenox 40 mg daily, he is on multivitamins, he was given IV fluids at a rate of 1:30 ML per hour, he is tolerating oral intake, no nausea vomiting diarrhea. The patient is seen today 04/13/2021 in follow-up on the regular medical floor. He is currently sitting up in bed. Awake and alert in no acute distress. He states he is breathing a bit easier today compared to yesterday. CT angiogram ruled out pulmonary embolism. Dopplers of the lower extremity were negative for DVT. Maintaining O2 saturations in the low 90s on 5 L high flow nasal cannula. He is afebrile. Hemodynamically stable. He is continued on Decadron, Lovenox, vitamin supplements. White count 14.4. Hemoglobin 13.7. Sodium 140. Potassium 3.9. Bicarb 18. Creatinine 0.9. Glucose 195. Reevaluated today on 04/14/2021, patient is doing a bit better today compared to yesterday. His oxygen saturation is improving, patient is on 5 L nasal cannula, and he is saturating at 97%. Less short of breath today, denies any chest pain, denies any fever no chills, d-dimer today is 1.21. LDH is 562, C-reactive protein is 4. Overall there is definite clinical improvement, and I believe the patient could possibly considered for discharge planning in the next 24 hours possibly may need home O2. Objective - Vital Signs Vital signs: Vital Signs Temp 98.7 F 04/14/21 14:00 Pulse 85 04/14/21 14:00 Resp 17 04/14/21 14:00 BP 126/85 04/14/21 05:47 Pulse Ox 97 04/14/21 14:00 Intake & Output 04/13/21 04/14/21 04/14/21 18:59 06:59 18:59 Intake Total 600 Balance 600 Weight 95.254 kg Intake: Oral 600 Other: # Voids 4 - Exam Physical Exam revealed 55-year-old -Cyp[place] male in no distress. Head: Atraumatic normocephalic. HEENT:[Neck is supple.] [No neck masses.] [No thyromegaly.] [No JVD.] Chest: [Minimal crackles at the bases no rhonchi no wheezes. Cardiac Exam: [Normal S1 and S2, no S3 gallop, no murmur.] Abdomen: [Soft, nontender, no megaly, no rebound, no guarding, normal bowel sounds.] Extremities: [No clubbing, no edema, no cyanosis.] Neurological Exam: [No focal neurologic deficit. Alert and oriented 3. Psychiatric: Normal mood affect and normal mental status examination. Skin: No rashes. Musculoskeletal no deformities noted limitation range of motion] - Labs CBC & Chem 7: 04/14/21 05:48 04/13/21 06:24 Labs: Abnormal Lab Results - Last 24 Hours (Table) 04/13/21 04/14/21 04/14/21 Range/Units 20:07 05:48 05:48 WBC (4.50-10.00) X 10*3/uL Immature Gran # (0.00-0.04) X 10*3/uL Neutrophils # (1.80-7.70) X 10*3/uL Eosinophils # (0.04-0.35) X 10*3/uL D-Dimer 1.21 H (<0.60) mg/L FEU POC Glucose (mg/dL) 310 H (75-99) mg/dL Lactate Dehydrogenase 562 H (120-246) U/L C-Reactive Protein 4.00 H (0.00-0.80) mg/dL 04/14/21 04/14/21 04/14/21 Range/Units 05:48 07:16 11:57 WBC 15.73 H (4.50-10.00) X 10*3/uL Immature Gran # 0.18 H (0.00-0.04) X 10*3/uL Neutrophils # 13.60 H (1.80-7.70) X 10*3/uL Eosinophils # 0 L (0.04-0.35) X 10*3/uL D-Dimer (<0.60) mg/L FEU POC Glucose (mg/dL) 139 H 159 H (75-99) mg/dL Lactate Dehydrogenase (120-246) U/L C-Reactive Protein (0.00-0.80) mg/dL 04/14/21 Range/Units 16:38 WBC (4.50-10.00) X 10*3/uL Immature Gran # (0.00-0.04) X 10*3/uL Neutrophils # (1.80-7.70) X 10*3/uL Eosinophils # (0.04-0.35) X 10*3/uL D-Dimer (<0.60) mg/L FEU POC Glucose (mg/dL) 263 H (75-99) mg/dL Lactate Dehydrogenase (120-246) U/L C-Reactive Protein (0.00-0.80) mg/dL Assessment and Plan Assessment: Impression acute hypoxic respiratory failure secondary to COVID-19 pneumonia, not vaccinated, patient tested positive initially on 04/12, however the patient had almost 10 days of symptoms prior to presentation and possible diagnosis. patient is on Decadron, he is also on Lovenox, and multivitamins. Not a candidate for Remdesivir because of his symptoms have been almost 10 days. Elevated d-dimer. Negative CT angiogram of the chest and negative Doppler. Hypovolemic hyponatremia. Type 2 diabetes. Not vaccinated. Recommendation: Continue present supportive care measures Continue Decadron Lovenox and multivitamins. Titrate oxygen accordingly and if the patient is requiring 5 L of glass in the next 24 hours, we will clear the patient to be discharged home in the morning. Patient will need to have follow-up on outpatient basis. Time with Patient: Less than 30
[2021-04-14] MEDS: INSULIN DETEMIR (LEVEMIR) 100 UNIT/ML SYR SQ SCH (21:40)
[2021-04-14 21:47] LABS: Glucose,Whole Blood 263 mg/dL (75-99)
--- NOTE | 2021-04-14 22:38 | P.PN ---
Subjective Progress Note Date: 04/13/21 Principal diagnosis: Covid19 pneumonia Patient is a 55-year-old -[place]ib[place] male presented to hospital with increasing shortness of breath and cough in this patient did have a evidence of multifocal pneumonia secondary COVID-19 infection. On today's evaluation that is 04/13/2021, patient denies having any fever or any chills, the patient is breathing slightly comfortably and is currently on 5 L nasal cannula, he denies having any chest pain no worsening cough or sputum pr oduction no abdominal pain no diarrhea Objective - Vital Signs Vital signs: Vital Signs Temp 98.7 F 04/14/21 14:00 Pulse 85 04/14/21 14:00 Resp 17 04/14/21 19:58 BP 126/85 04/14/21 05:47 Pulse Ox 97 04/14/21 14:00 - Exam GENERAL DESCRIPTION: Middle-aged male lying in bed, no distress. No tachypnea or accessory muscle of respiration use. LUNGS: Unlabored breathing. Coarse breath sounds bilaterally. No wheeze or crackle. HEART: S1, S2, regular rate and rhythm. No loud murmur ABDOMEN: Soft, no tenderness , guarding or rigidity, no organomegaly EXTREMITIES: No edema of feet. - Labs CBC & Chem 7: 04/14/21 05:48 04/13/21 06:24 Labs: Abnormal Lab Results - Last 24 Hours (Table) 04/14/21 04/14/21 04/14/21 Range/Units 05:48 05:48 05:48 WBC 15.73 H (4.50-10.00) X 10*3/uL Immature Gran # 0.18 H (0.00-0.04) X 10*3/uL Neutrophils # 13.60 H (1.80-7.70) X 10*3/uL Eosinophils # 0 L (0.04-0.35) X 10*3/uL D-Dimer 1.21 H (<0.60) mg/L FEU POC Glucose (mg/dL) (75-99) mg/dL Lactate Dehydrogenase 562 H (120-246) U/L C-Reactive Protein 4.00 H (0.00-0.80) mg/dL 04/14/21 04/14/21 04/14/21 Range/Units 07:16 11:57 16:38 WBC (4.50-10.00) X 10*3/uL Immature Gran # (0.00-0.04) X 10*3/uL Neutrophils # (1.80-7.70) X 10*3/uL Eosinophils # (0.04-0.35) X 10*3/uL D-Dimer (<0.60) mg/L FEU POC Glucose (mg/dL) 139 H 159 H 263 H (75-99) mg/dL Lactate Dehydrogenase (120-246) U/L C-Reactive Protein (0.00-0.80) mg/dL 04/14/21 Range/Units 21:38 WBC (4.50-10.00) X 10*3/uL Immature Gran # (0.00-0.04) X 10*3/uL Neutrophils # (1.80-7.70) X 10*3/uL Eosinophils # (0.04-0.35) X 10*3/uL D-Dimer (<0.60) mg/L FEU POC Glucose (mg/dL) 263 H (75-99) mg/dL Lactate Dehydrogenase (120-246) U/L C-Reactive Protein (0.00-0.80) mg/dL Assessment and Plan Assessment: Patient with acute COVID-19 pneumonia this patient with minimal clinical improvement still requiring 5 L nasal cannula patient to continue with the dexamethasone Lovenox zinc and ascorbic acid along with respiratory support Time with Patient: Less than 30
[2021-04-15] MEDS: ENOXAPARIN 40 MG/0.4 ML SYRINGE SQ SCH (07:33)
[2021-04-15] MEDS: ZINC SULFATE 220 MG CAP PO SCH (07:34)
[2021-04-15] MEDS: DEXAMETHASONE SOD PHOSPHATE 10 MG/ML 1 ML VIAL IVP SCH (07:34)
[2021-04-15] MEDS: ASCORBIC ACID 500 MG TAB PO SCH (07:34)
[2021-04-15] MEDS: CHOLECALCIFEROL 25 MCG (1000 IU) TABLET PO SCH (07:34)
[2021-04-15] MEDS: INSULIN ASPART (NovoLOG) 100 UNIT/ML VIAL SQ SCH ×4 (07:34→12:25)
[2021-04-15] MEDS: FAMOTIDINE 20 MG TAB PO SCH (07:34)
[2021-04-15 09:21] LABS: Basophils # (A) 0.1 k/uL (0-0.2); Basophils % (A) 1 %; Eosinophils # (A) 0.1 k/uL (0-0.7); Eosinophils % (A) 1 %; HCT 50.3 % (39.0-53.0); HGB 16.3 gm/dL (13.0-17.5); Lymphocytes # (A) 1.4 k/uL (1.0-4.8); Lymphocytes % (A) 13 %; MCH 29.4 pg (25.0-35.0); MCHC 32.5 g/dL (31.0-37.0); MCV 90.2 fL (80.0-100.0); Mean Platelet Volume 8.9; Monocytes # (A) 0.5 k/uL (0-1.0); Monocytes % (A) 5 %; Neutrophils # (A) 8.6 k/uL (1.3-7.7); Neutrophils % (A) 78 %; Platelet Count 382 k/uL (150-450); RBC 5.57 m/uL (4.30-5.90); RDW 13.4 % (11.5-15.5); WBC 10.9 k/uL (3.8-10.6)
[2021-04-15 09:48] LABS: African American GFR (CKD) 85 (>60 ml/min/1.73 sqM); Anion Gap 9 mmol/L; Blood Urea Nitrogen 21 mg/dL (9-20); Calcium 8.6 mg/dL (8.4-10.2); Carbon Dioxide 24 mmol/L (22-30); Chloride 108 mmol/L (98-107); Glucose 141 mg/dL (74-99); Non-African American GFR(CKD) 74 (>60 ml/min/1.73 sqM); Potassium 4.6 mmol/L (3.5-5.1); Sodium 141 mmol/L (137-145)
[2021-04-15 10:18] VITALS: BP 133/77; PULSE 80; RESP 18; TEMP 98.8
[2021-04-15 11:44] LABS: Glucose,Whole Blood 126 mg/dL (75-99)
[2021-04-15 11:48] LABS: Glucose,Whole Blood 248 mg/dL (75-99)
--- NOTE | 2021-04-15 11:59 | P.PN ---
Subjective Progress Note Date: 04/15/21 Principal diagnosis: Dyspnea, hypoxia This is a pleasant 55-year-old -N[place]alese male with past medical history hypertension, diabetes mellitus type 2, nonsmoker who is not vaccinated against COVID-19 came into the emergency department on 04/12/2021 with complaints of worsening dyspnea and hypoxia. He states his had symptoms of not feeling well, body aches, fever, loss of taste and smell for around 10 days. He tested positive for COVID-19 via PCR test in the emergency department. His pulse ox was 80% on room air, he is currently requiring 6 L of oxygen, and his pulse ox is 94%, hemodynamically stable. He does not appear to be in any acute distress, his chest x-ray in the emergency department showed new bilateral peripheral interstitial pneumonia. His lab work showed white blood cell count of 10.3, hemoglobin 15.7, his lymphocyte count 0.7, d-dimer is 1.14, sodium is 132, potassium is 3.9, chloride is 106, CO2 is 15, BUN is 18, creatinine is 1.2, glucose level was 258, ferrritin level pending,LDH 1701, troponin of 0.025, CRP 22.7, BNP 48. He is outside the window for Remdesivir, and he is not a candidate for monoclonal antibodies. He is started on Decadron, 6 mg daily, he is on Lovenox 40 mg daily, he is on multivitamins, he was given IV fluids at a rate of 1:30 ML per hour, he is tolerating oral intake, no nausea vomiting diarrhea. The patient is seen today 04/13/2021 in follow-up on the regular medical floor. He is currently sitting up in bed. Awake and alert in no acute distress. He states he is breathing a bit easier today compared to yesterday. CT angiogram ruled out pulmonary embolism. Dopplers of the lower extremity were negative for DVT. Maintaining O2 saturations in the low 90s on 5 L high flow nasal cannula. He is afebrile. Hemodynamically stable. He is continued on Decadron, Lovenox, vitamin supplements. White count 14.4. Hemoglobin 13.7. Sodium 140. Potassium 3.9. Bicarb 18. Creatinine 0.9. Glucose 195. Reevaluated today on 04/14/2021, patient is doing a bit better today compared to yesterday. His oxygen saturation is improving, patient is on 5 L nasal cannula, and he is saturating at 97%. Less short of breath today, denies any chest pain, denies any fever no chills, d-dimer today is 1.21. LDH is 562, C-reactive protein is 4. Overall there is definite clinical improvement, and I believe the patient could possibly considered for discharge planning in the next 24 hours possibly may need home O2. On 04/15/2021 patient seen in follow-up on medical surgical floor, he is resting comfortably in bed, does not appear to be in any acute distress, he is laying flat on his back, lung sounds are essentially clear to auscultation, no rhonchi or wheezing, no crackles. He is on 5 L of oxygen his pulse ox is 93-94%, no worsening dyspnea, minimal cough, no complaints of chest discomfort, no fever or chills, vital signs have been stable overnight. Patient continues on Decadron 6 mg daily, he is on prophylactic Lovenox, multivitamins. Labs today have been reviewed, white blood cell count is improving and is down to 10.9, hemoglobin is 16.3, his platelet count is 382, his d-dimer from yesterday was 1.21, sodium is 141, potassium is 4.6, chloride was 108, BUN was 21 and creatinine is 1.12. He patitis Matt, he had no nausea vomiting or diarrhea, tolerating oral intake, no abdominal pain. His inflammatory markers were improving on yesterday's labs and LDH was down to 562, and CRP was down to 4.0, his pro-calcitonin level was 0.29. CT angios of the chest from 04/12/2021 was a suboptimal study without evidence of a central saddle pulmonary embolism, his lower extremity Dopplers were negative for DVT. Hemodynamically patient looks very comfortable. Patient sat up in a chair, tolerates activity well. Patient has been ambulating to the bathroom, independently, tolerates activity well. Objective - Vital Signs Vital signs: Vital Signs Temp 98.8 F 04/15/21 08:00 Pulse 80 04/15/21 08:00 Resp 18 04/15/21 08:00 BP 133/77 04/15/21 08:00 Pulse Ox 93 L 04/15/21 08:00 Intake & Output 04/14/21 04/15/21 04/15/21 18:59 06:59 18:59 Intake Total 1000 Output Total 300 Balance 1000 -300 Intake: Oral 1000 Output: Urine 300 Other: # Voids 4 - Exam GENERAL EXAM: Alert, very pleasant, 55-year-old -N[place]alese male, 5 L of oxygen, laying flat on his back, with a pulse ox of 94% comfortable in no apparent distress. HEAD: Normocephalic/atraumatic. EYES: Normal reaction of pupils, equal size. Conjunctiva pink, sclera white. NOSE: Clear with pink turbinates. THROAT: No erythema or exudates. NECK: No masses, no JVD, no thyroid enlargement, no adenopathy. CHEST: No chest wall deformity. Symmetrical expansion. LUNGS: Equal air entry with no crackles, wheeze, rhonchi or dullness. CVS: Regular rate and rhythm, normal S1 and S2, no gallops, no murmurs, no rubs ABDOMEN: Soft, nontender. No hepatosplenomegaly, normal bowel sounds, no guarding or rigidity. EXTREMITIES: No clubbing, no edema, no cyanosis, 2+ pulses and upper and lower extremities. MUSCULOSKELETAL: Muscle strength and tone normal. SPINE: No scoliosis or deformity SKIN: No rashes CENTRAL NERVOUS SYSTEM: Alert and oriented -3. No focal deficits, tone is normal in all 4 extremities. PSYCHIATRIC: Alert and oriented -3. Appropriate affect. Intact judgment and insight. - Labs CBC & Chem 7: 04/15/21 08:05 04/15/21 08:05 Labs: Abnormal Lab Results - Last 24 Hours (Table) 04/14/21 04/14/21 04/14/21 Range/Units 11:57 16:38 21:38 WBC (3.8-10.6) k/uL Neutrophils # (1.3-7.7) k/uL Chloride (98-107) mmol/L BUN (9-20) mg/dL Glucose (74-99) mg/dL POC Glucose (mg/dL) 159 H 263 H 263 H (75-99) mg/dL 04/15/21 04/15/21 04/15/21 Range/Units 07:14 08:05 08:05 WBC 10.9 H (3.8-10.6) k/uL Neutrophils # 8.6 H (1.3-7.7) k/uL Chloride 108 H (98-107) mmol/L BUN 21 H (9-20) mg/dL Glucose 141 H (74-99) mg/dL POC Glucose (mg/dL) 126 H (75-99) mg/dL 04/15/21 Range/Units 11:47 WBC (3.8-10.6) k/uL Neutrophils # (1.3-7.7) k/uL Chloride (98-107) mmol/L BUN (9-20) mg/dL Glucose (74-99) mg/dL POC Glucose (mg/dL) 248 H (75-99) mg/dL Assessment and Plan Plan: Assessment: #1. Acute hypoxic respiratory failure related to acute COVID-19 pneumonia, patient coming to the emergency department on 04/12/2021 with 10 day symptoms of COVID-19 infection. Non-vaccinated against COVID-19. Tested positive on 04/12/2021. Outside the window for Remdesivir, has been started on Decadron, and prophylactic anticoagulation in addition to multivitamins #2. Elevated d-dimer, CTA chest was a suboptimal study showing no evidence of a central saddle embolism, and lower extremity Dopplers were negative for DVT #3. Elevated inflammatory markers related to the above, improving #4. Mild hyponatremia related to poor oral intake and dehydration, patient is receiving gentle IV hydration, resolved #5. Diabetes mellitus type 2 and steroid-induced hyperglycemia #6. Nonsmoker Plan: Clinically patient is improving No worsening dyspnea, no worsening cough, no fever or chills Has been tolerating ambulation Tolerating oral intake Vital signs are stable Remains on oxygen at 5 L Inflammatory markers are improving No evidence of PE or DVT on the CT chest or lower extremity Dopplers Increase activity as tolerated Stable for discharge home from pulmonary perspective on home oxygen at 4-5 L Patient can complete outpatient course of oral Decadron for a total of 10 days, continue on multivitamins no need for prophylactic anticoagulation post discharge Outpatient follow-up with Dr. Crandall in the office in 2 weeks I performed a history & physical examination of the patient and discussed their management with my nurse practitioner, Arlene Schwartz. I reviewed the nurse practitioner's note and agree with the documented findings and plan of care. Lung sounds are positive fordim breath sounds with crackles throughout the lung fagan. The findings and the impression was discussed with the patient. I attest to the documentation by the nurse practitioner. Time with Patient: Less than 30
--- NOTE | 2021-04-15 14:23 | P.PN ---
Subjective Progress Note Date: 04/14/21 Principal diagnosis: Covid19 pneumonia Patient is a 55-year-old -[place] male presented to hospital with increasing shortness of breath and cough in this patient did have a evidence of multifocal pneumonia secondary COVID-19 infection. On today's evaluation that is 04/14/2021 the patient is afebrile, the patient is breathing more comfortably patient denies having any chest pain no worsening cough or sputum production no abdominal pain no diarrhea overall feeling better Objective - Vital Signs Vital signs: Vital Signs Temp 98.7 F 04/14/21 14:00 Pulse 85 04/14/21 14:00 Resp 17 04/14/21 19:58 BP 126/85 04/14/21 05:47 Pulse Ox 97 04/14/21 14:00 - Exam GENERAL DESCRIPTION: Middle-aged male lying in bed, no distress. No tachypnea or accessory muscle of respiration use. LUNGS: Unlabored breathing. Coarse breath sounds bilaterally. No wheeze or crackle. HEART: S1, S2, regular rate and rhythm. No loud murmur ABDOMEN: Soft, no tenderness , guarding or rigidity, no organomegaly EXTREMITIES: No edema of feet. - Labs CBC & Chem 7: 04/15/21 08:05 04/15/21 08:05 Labs: Abnormal Lab Results - Last 24 Hours (Table) 04/14/21 04/14/21 04/14/21 Range/Units 05:48 05:48 05:48 WBC 15.73 H (4.50-10.00) X 10*3/uL Immature Gran # 0.18 H (0.00-0.04) X 10*3/uL Neutrophils # 13.60 H (1.80-7.70) X 10*3/uL Eosinophils # 0 L (0.04-0.35) X 10*3/uL D-Dimer 1.21 H (<0.60) mg/L FEU POC Glucose (mg/dL) (75-99) mg/dL Lactate Dehydrogenase 562 H (120-246) U/L C-Reactive Protein 4.00 H (0.00-0.80) mg/dL 04/14/21 04/14/21 04/14/21 Range/Units 07:16 11:57 16:38 WBC (4.50-10.00) X 10*3/uL Immature Gran # (0.00-0.04) X 10*3/uL Neutrophils # (1.80-7.70) X 10*3/uL Eosinophils # (0.04-0.35) X 10*3/uL D-Dimer (<0.60) mg/L FEU POC Glucose (mg/dL) 139 H 159 H 263 H (75-99) mg/dL Lactate Dehydrogenase (120-246) U/L C-Reactive Protein (0.00-0.80) mg/dL 04/14/21 Range/Units 21:38 WBC (4.50-10.00) X 10*3/uL Immature Gran # (0.00-0.04) X 10*3/uL Neutrophils # (1.80-7.70) X 10*3/uL Eosinophils # (0.04-0.35) X 10*3/uL D-Dimer (<0.60) mg/L FEU POC Glucose (mg/dL) 263 H (75-99) mg/dL Lactate Dehydrogenase (120-246) U/L C-Reactive Protein (0.00-0.80) mg/dL Assessment and Plan Assessment: Patient with acute COVID-19 pneumonia this patient Continue to show slow improvement still requiring 5 L nasal cannula patient To continue with the current supportive treatment of dexamethasone Lovenox zinc and ascorbic acid along with respiratory support Time with Patient: Less than 30
--- NOTE | 2021-04-15 14:25 | P.PN ---
Subjective Progress Note Date: 04/15/21 Principal diagnosis: Covid19 pneumonia Patient is a 55-year-old -German male presented to hospital with increasing shortness of breath and cough in this patient did have a evidence of multifocal pneumonia secondary COVID-19 infection. On today's evaluation that is 04/15/2021 the patient remains to be afebrile, the patient is breathing comfortably on nasal cannula oxygen still requiring 3 to 5 L nasal cannula patient denies any chest pain no worsening cough and sputum production to be denies abdominal pain and no diarrhea Objective - Vital Signs Vital signs: Vital Signs Temp 98.8 F 04/15/21 08:00 Pulse 80 04/15/21 08:00 Resp 18 04/15/21 08:00 BP 133/77 04/15/21 08:00 Pulse Ox 93 L 04/15/21 08:00 Intake & Output 04/14/21 04/15/21 04/15/21 18:59 06:59 18:59 Intake Total 1000 Output Total 300 Balance 1000 -300 Intake: Oral 1000 Output: Urine 300 Other: # Voids 4 - Exam GENERAL DESCRIPTION: Middle-aged male lying in bed, no distress. No tachypnea or accessory muscle of respiration use. LUNGS: Unlabored breathing. Decrease intensity of breath sounds bilaterally. No wheeze or crackle. HEART: S1, S2, regular rate and rhythm. ABDOMEN: Soft, no tenderness , guarding or rigidity EXTREMITIES: No edema of feet. - Labs CBC & Chem 7: 04/15/21 08:05 04/15/21 08:05 Labs: Abnormal Lab Results - Last 24 Hours (Table) 04/14/21 04/14/21 04/15/21 Range/Units 16:38 21:38 07:14 WBC (3.8-10.6) k/uL Neutrophils # (1.3-7.7) k/uL Chloride (98-107) mmol/L BUN (9-20) mg/dL Glucose (74-99) mg/dL POC Glucose (mg/dL) 263 H 263 H 126 H (75-99) mg/dL 04/15/21 04/15/21 04/15/21 Range/Units 08:05 08:05 11:47 WBC 10.9 H (3.8-10.6) k/uL Neutrophils # 8.6 H (1.3-7.7) k/uL Chloride 108 H (98-107) mmol/L BUN 21 H (9-20) mg/dL Glucose 141 H (74-99) mg/dL POC Glucose (mg/dL) 248 H (75-99) mg/dL Assessment and Plan Assessment: Patient with acute COVID-19 pneumonia this patient Continue to show slow improvement still requiring 3-5 L nasal cannula , Plan is for possible discharge home today on nasal cannula oxygen along with dexamethasone zinc ascorbic acid and close outpatient follow-up, no need for systemic antibiotic therapy on discharge Time with Patient: Less than 30
--- NOTE | 2021-04-15 15:52 | P.DS ---
Providers Date of admission: 04/12/21 06:04 Attending physician: Rocky Dixon Consults: 04/12/21 05:33 Consult Physician Routine Consulting Provider: Evangelista Whipple Consult Reason/Comments: covid Do you want consulting provider notified?: Yes 04/12/21 12:39 Consult Physician Routine Consulting Provider: Rory Ruggiero Consult Reason/Comments: covid Do you want consulting provider notified?: Yes Primary care physician: [facility] Course: Final diagnoses Acute hypoxic respiratory failure secondary to acute covid 19 pneumonia. Currently on 5L NC. Leukocytosis secondary to above Elevated DDimer, no evidence for pulmonary embolism or DVT Diabetes mellitus type 2 with hyperglycemia due to steroids Elevated inflammatory markers secondary to covid 19 infection, improving History of hypertension, stable Discharge disposition Patient is currently medically stable for discharge. He is cleared by ID and pulmonary services. There is no need for systemic antibiotics on discharge. He will discharge in 4-5 L of nasal cannula oxygen support. Follow-up with pulmonary in the office. Hospital course This is a pleasant 55-year-old male who presents to the with complaints of fever cough congestion shortness of breath for the last 7 days he also lost his taste and smell. He did test positive for coronara virus via PCR in this hospital. Past medical history significant for diabetes mellitus hypertension he is a never smoker. Chest x-ray on admission shows new bilateral peripheral interstitial pneumonia compared to old exam. Initial labs showed white count 10.3, d-dimer 1.14, sodium 132, CO2 15, BUN 18, creatinine 1.22, glucose in the 200s, mag 2.3, ferritin 2354, LDH 04/02/2000, CRP 22.7, albumin 3.2. Inflammatory markers repeat shows LDH of 562, CRP 4, pro-calcitonin 0.29. White count elevated to 15.73 and began to trend down. Repeat d-dimer 1.21. Urinalysis shows 2+ protein, 4+ glucose 1+ ketones and moderate blood and rare mucus, he is acetone negative. He was followed this admission by pulmonary and ID services. 04/15/2021 Patient evaluated today at bedside no acute events overnight. Breathing is stable lungs are clear. He does require 4-5 L of nasal cannula. He feels comfortable with discharge today and he was cleared by pulmonary and ID services. We will continue Decadron orally for a short course to complete 10 days of therapy. Follow-up in the office with pulmonary and primary care services. Denies chest pain, mild cough, mild dyspnea with exertion, denies nausea vomiting diarrhea. Focal neurological exam is negative. Please see medication reconciliation for list of current medications. Thank you for allowing us to participate in the care of this patient. Patient Condition at Discharge: Fair Plan - Discharge Summary Discharge Rx Participant: No New Discharge Prescriptions: New Ibuprofen [Motrin] 400 mg PO Q6HR PRN tab PRN Reason: Mild Pain Or Fever > 100.5 Ascorbic Acid [Vitamin C] 500 mg PO BID #60 tab Dexamethasone [Decadron] 6 mg PO DAILY 7 Days #7 tablet Zinc Sulfate [Orazinc] 220 mg PO DAILY #30 cap Famotidine [Pepcid] 20 mg PO DAILY #30 tab Acetaminophen Tab [Tylenol] 650 mg PO Q6HR PRN tab PRN Reason: Mild Pain Or Fever > 100.5 Cholecalciferol [Vitamin D3 (25 Mcg = 1000 Iu)] 25 mcg PO DAILY #30 tablet Changed Insulin Glargine,Hum.rec.anlog [Lantus Solostar Pen] 20 unit SQ HS #0 Discharge Medication List Acetaminophen Tab [Tylenol] 650 mg PO Q6HR PRN tab 04/15/21 [Rx] Ascorbic Acid [Vitamin C] 500 mg PO BID #60 tab 04/15/21 [Rx] Cholecalciferol [Vitamin D3 (25 Mcg = 1000 Iu)] 25 mcg PO DAILY #30 tablet 04/15/21 [Rx] Dexamethasone [Decadron] 6 mg PO DAILY 7 Days #7 tablet 04/15/21 [Rx] Famotidine [Pepcid] 20 mg PO DAILY #30 tab 04/15/21 [Rx] Ibuprofen [Motrin] 400 mg PO Q6HR PRN tab 04/15/21 [Rx] Insulin Glargine,Hum.rec.anlog [Lantus Solostar Pen] 20 unit SQ HS #0 04/15/21 [Rx] Zinc Sulfate [Orazinc] 220 mg PO DAILY #30 cap 04/15/21 [Rx] Follow up Appointment(s)/Referral(s): John Crandall MD [STAFF PHYSICIAN] - 2 Weeks (office not answering. Please call to schedule appointment ) [facility] [NON-STAFF] - As Needed (oxygen) Lynette Cooper MD [Primary Care Provider] - 04/22/21 4:00 pm (Telehealth. office will call) Patient Instructions/Handouts: Coronavirus Disease 2019 (COVID-19), Using Oxygen at Home (DC) Activity/Diet/Wound Care/Special Instructions: Home with 4-5 L of home oxygen Discharge Disposition: HOME WITH HOME HEALTH SERVICES
== END 2021-04-15 14:10 | disposition home health service (06) | DRG 177 ==
LOC: EC 04:58 → 4SSUR 06:04
PROVIDERS: ADMIT Hospitalist; ATTEND Hospitalist
PROC: 3E0F7SF Introduction of Other Gas into Respiratory Tract, Via Natural or Artificial Opening (ICD-10-PCS; principal; 2021-04-12)
DX: U07.1 COVID-19 (principal); J12.82 Pneumonia due to coronavirus disease 2019; J96.01 Acute respiratory failure with hypoxia; E87.1 Hypo-osmolality and hyponatremia; I10 Essential (primary) hypertension; D72.810 Lymphocytopenia; E11.65 Type 2 diabetes mellitus with hyperglycemia; E86.0 Dehydration; R00.0 Tachycardia, unspecified; E86.1 Hypovolemia; K75.9 Inflammatory liver disease, unspecified; T38.0X5A Adverse effect of glucocorticoids and synthetic analogues, initial encounter; X58.XXXA Exposure to other specified factors, initial encounter; Z79.01 Long term (current) use of anticoagulants; Z79.4 Long term (current) use of insulin; Z82.5 Family history of asthma and other chronic lower respiratory diseases; Z79.899 Other long term (current) drug therapy
CPT/HCPCS: 36415; 71045; 71275; 80048; 80053; 81001; 82009; 82728; 83605; 83615; 83735; 83880; 84145; 84484; 85025; 85379; 85610; 85730; 86140; 87635; 93005; 93970; 99285